=== PATIENT | female | born 1955 | race Caucasian/White ===

== ENCOUNTER 2020-04-17 13:57 | Emergency (ER) | payer OTHER ==
--- OUTSIDE RECORDS SUMMARY | 2020-04-17 13:59 | XMS REPORT | Clinical Summary ---
:1955 Author Organization [facility] Address [address] [place] [address] Care Team Providers Name Role Phone MD Ceferino Primary Care Provider Allergies No Known Allergies Medications Medication Sig Dispensed Refills Start Date End Date Status citalopram (CeleXA) Take 10 mg by 1 07/23/2018 Active 10 MG tablet mouth daily. PREMARIN 0.625 0 10/18/2018 Acti ve mg/gram vaginal cream omeprazole Take by mouth 1 10/11/2018 Acti ve (PriLOSEC) 40 MG daily. capsule raloxifene (EVISTA) Take 60 mg by 1 07/23/2018 Active 60 mg tablet mouth daily. predniSONE Take 15 mg by 1 10/18/2018 Acti ve (DELTASONE) 5 mg mouth daily. tablet nitrofurantoin, Take 100 mg 0 Ac tive macrocrystal-monohy by mouth 2 drate, (MACROBID) (two) times a 100 MG capsule day. famotidine (PEPCID) Take 40 mg by 0 Active 40 MG tablet mouth daily. ciprofloxacin Take 500 mg 0 Acti ve (CIPRO) 500 MG by mouth 2 tablet (two) times a day. vit B Take 1 tablet 0 Active complex-vitamin by mouth C-folic acid daily. (NEPHRO-JUDIT OTC) 0.8 mg tablet timoloL (BetimoL) 1-2 drops 2 0 Active 0.25 % ophthalmic (two) times a solution day. prednisoLONE 1 drop 4 0 Active acetate (PRED (four) times FORTE) 1 % a day. ophthalmic suspension mesalamine (APRISO) Take 1 60 capsule 2 04/02/2020 09/29/20 Active 0.375 gram 24 hr capsule 20 capsule (0.375 g total) by mouth daily for 180 days. dicyclomine TAKE 1 TABLET 120 tablet 0 04/06/2020 07/05/20 Ac tive (BENTYL) 20 mg BY MOUTH 4 20 tabletIndications: TIMES A DAY Lower abdominal NEEDED pain (ABDOMINAL PAIN) mesalamine (APRISO) Take 375 mg 0 01/27/20 Discontinued 0.375 gram 24 hr by mouth 20 (Re order) capsule daily. mesalamine (APRISO) Take 1 60 capsule 2 01/27/2020 02/24/20 Discontinued 0.375 gram 24 hr capsule 20 (Re order) capsule (0.375 g total) by mouth daily for 180 days. pneumococcal Inject 0.5 mL 0.5 mL 0 02/04/2020 02/04/20 Ex pired polysaccharide into the 20 23-valent shoulder, (PNEUMOVAX-23) 25 thigh, or mcg/0.5 mL buttocks once vaccineIndications: for 1 dose. Low serum IgG for age, Low serum IgA and IgM levels (HCC) mesalamine (APRISO) Take 1 60 capsule 2 02/24/2020 04/02/20 Discontinued 0.375 gram 24 hr capsule 20 (Re order) capsule (0.375 g total) by mouth daily for 180 days. dicyclomine Take 1 tablet 60 tablet 1 03/04/2020 03/30/20 Dis continued (BENTYL) 20 mg (20 mg total) 20 tabletIndications: by mouth 4 Lower abdominal (four) times pain a day as needed (abdominal pain) for up to 30 days. dicyclomine TAKE 1 TABLET 120 tablet 0 03/30/2020 04/06/20 Di scontinued (BENTYL) 20 mg BY MOUTH 4 20 (Reo rder) tabletIndications: TIMES A DAY Lower abdominal NEEDED pain (ABDOMINAL PAIN) FOR UP TO 30 DAYS. Active Problems Problem Noted Date Chest pain 10/30/2018 Encounters Date Type Specialty Care Team Description 04/06/2020 Orders Only Gastroenterology Alonso, Lower abdom inal pain ANNELIESE Lassiter 04/02/2020 Orders Only GastroenterMaikol Salazar MA 03/26/2020 Refill Gastroenterology Kwame, Lower abdom inal pain Veronica Vale MD 03/04/2020 Telemedicine Gastroenterology Kwame, Lower abdom inal pain Veronica Vale MD (Primary Dx) 03/02/2020 Travel 02/25/2020 Orders Only Allergy and Immunology Obrien, Carleen Recur rent infections (Primary Dx); MD [place] Low serum IgG f or age; Low serum IgA a nd IgM levels (HCC) 02/24/2020 Orders Only Gastroenterology Adelina Pichardo MA 02/04/2020 Telemedicine Allergy and Immunology Carleen Obrien s karyna IgG for age (Primary Dx); MD [place] Low serum IgA a nd IgM levels (HCC); Iritis; Inflammatory jhoan wel disease 02/04/2020 Orders Only Gastroenterology Kylee Crohn's dis ease of ANNELIESE Sahu colon with oth er complication (H CC) (Primary Dx) 02/03/2020 Telemedicine Gastroenterology Kwame Crohn's dis ease of Veronica Vale MD colon with o ther complication (H CC) (Primary Dx) 01/28/2020 Travel 01/27/2020 Orders Only Gastroenterology Adelina Pichardo MA 01/06/2020 Telemedicine Allergy and Immunology Carleen Obrien i mmunoglobulin level (Primary Dx); MD [place] Recurrent infec tions 12/17/2019 Orders Only Gastroenterology Veronica Puente MD 12/12/2019 Orders Only GastroenterVeronica Cash MD 12/10/2019 Office Visit Gastroenterology Kwame Inflammator y bowel Veronica Vale MD disease ([facility] ness Dx) after 04/17/2019 Family History Medical History Relation Name Comments CABG/Stent Brother Hypertension Father COPD Mother Hypertension Mother Stroke Mother Colon cancer Neg Hx Colon polyps Neg Hx Relation Name Status Comments Brother Alive Father Mother Alive Social History Tobacco Use Types Packs/Day Years Used Date Former Smoker Smokeless Tobacco: Never Used Comments: as teen Alcohol Use Drinks/Week oz/Week Comments No Alcohol Habits Answer Date Recorded How often do you have a drink containing alcohol? Never 10/30/2018 How many drinks containing alcohol do you have on a typical Not asked day when you are drinking? How often do you have six or more drinks on one occasion? No t asked Sex Assigned at Date Recorded Not on file Job Start Date Occupation Industry Not on file Not on file Not on file Travel History Travel Start Travel End No recent travel history available. Last Filed Vital Signs Vital Sign Reading Time Taken Comments Blood Pressure 122/82 12/10/2019 3:[address] [employer] Pulse 76 12/10/2019 3:[address] [employer] Temperature 36.7 C (98.1 F) 12/10/2019 3:[address] [employer] Respiratory Rate 12 12/10/2019 3:[address] [employer] Oxygen Saturation - - Inhaled Oxygen Concentration - - Weight 81.6 kg (180 lb) 03/04/2020 12:38 PM CDT Height 170.2 cm (5' 7") 03/04/2020 12:38 PM CDT Body Mass Index 28.19 03/04/2020 12:38 PM CDT Plan of Treatment Health Maintenance Due Date Last Done Comments CERVICAL CANCER SCREENING 1976 BREAST CANCER SCREENING 2005 COLONOSCOPY SCREENING 2005 SHINGLES VACCINES (#1) 2005 INFLUENZA VACCINE 05/16/2020 Procedures Procedure Name Priority Date/Time Associated Diagnosis Comme nts STREPTOCOCCUS Routine 03/02/2020 2:49 Recurrent infec tions Results for this PNEUMONIAE IGG ANTIBODY PM CDT Low seru m IgG for age procedure are in (23 SEROTYPES), MAID Low serum IgA and Ig M the results levels (HCC) section. SERUM ELECTROPHORESIS Routine 02/04/2020 4:15 Low serum IgG for age Results for this PM CDT Low serum IgA and IgM proced ure are in levels (HCC) the results Iritis section. Inflammatory bowel disease LEUKEMIA/LYMPHOMA Routine 02/04/2020 4:15 Low serum IgG for age Results for this EVALUATION PM CDT Low serum IgA and IgM proced ure are in levels (HCC) the results Iritis section. Inflammatory bowel disease HIV 1/2 Routine 02/04/2020 4:13 Low serum IgG f or age Results for this ANTIGEN/ANTIBODY, PM CDT Low serum IgA and IgM p rocedure are in FOURTH GENERATION W/RFL levels ( HCC) the results Iritis section. Inflammatory bowel disease HEPATITIS B CORE Routine 02/04/2020 4:09 Crohn's disease of R esults for this ANTIBODY TOTAL PM CDT colon with other procedure are in complication (HCC) the resul ts section. HEPATITIS B SURFACE Routine 02/04/2020 4:09 Crohn's disease o f Results for this ANTIGEN PM CDT colon with other procedure a re in complication (HCC) the resul ts section. COMPREHENSIVE METABOLIC Routine 02/04/2020 4:09 Crohn's disea se of Results for this PANEL PM CDT colon with other procedure a re in complication (HCC) the resul ts section. CBC HEMOGRAM Routine 02/04/2020 4:09 Crohn's disease of Resul ts for this PM CDT colon with other procedure a re in complication (HCC) the resul ts section. STREPTOCOCCUS Routine 01/07/2020 11:29 Low immunoglobulin Resu lts for this PNEUMONIAE IGG ANTIBODY AM CDT level procedure are in (23 SEROTYPES), MAID Recurrent infections the results section. DIPHTHERIA ANTITOXOID Routine 01/07/2020 11:29 Low immunoglobu mac Results for this AB AM CDT level procedure are in Recurrent infections the res ults section. TETANUS ANTITOXOID Routine 01/07/2020 11:29 Low immunoglobulin Results for this AM CDT level procedure are in Recurrent infections the res ults section. IMMUNOGLOBULIN A Routine 01/07/2020 11:29 Low immunoglobulin R esults for this AM CDT level procedure are in Recurrent infections the res ults section. LYMPHOCYTE SUBSET PANEL Routine 01/07/2020 11:29 Low immunoglo bulin Results for this 1 AM CDT level procedure are in Recurrent infections the res ults section. IMMUNOGLOBULIN M Routine 01/07/2020 11:29 Low immunoglobulin R esults for this AM CDT level procedure are in Recurrent infections the res ults section. IMMUNOGLOBULIN G Routine 01/07/2020 11:29 Low immunoglobulin R esults for this AM CDT level procedure are in Recurrent infections the res ults section. FECAL CALPROTECTIN Routine 12/17/2019 8:43 Resul ts for this AM STREET [employer] procedure are i n the results section. C-REACTIVE PROTEIN Routine 12/12/2019 11:57 Resul ts for this AM STREET [employer] procedure are i n the results section. SEDIMENTATION RATE Routine 12/12/2019 11:57 Resul ts for this AM STREET [employer] procedure are i n the results section. QUANTIFERON-TB GOLD Routine 12/12/2019 11:45 Re sults for this PLUS, [address] [employer] procedure are i n the results section. after 04/17/2019 Results Streptococcus pneumoniae IgG AB (23 Serotypes), MAID (03/02/2020 2:49 PM CDT) Only the most recent of2 resultswithin the time period is included. Pneumococcal 46.9 [facility] serotype 1, IgG Pneumococcal 6.5 [facility] serotype 2, IgG Pneumococcal 2.0 [facility] serotype 3, IgG Pneumococcal >28.0 [facility] serotype 4, IgG Pneumococcal 2.7 [facility] serotype 5, IgG Pneumococcal >86.0 [facility] serotype 8, IgG Pneumococcal 1.1 [facility] serotype 9N, IgG Pneumococcal 0.4 [facility] serotype 12F, IgG Pneumococcal 0.4 [facility] serotype 14, IgG Pneumococcal 18.1 [facility] serotype 17F, IgG Pneumococcal 1.1 [facility] serotype 19F, IgG Pneumococcal 19.3 [facility] serotype 20, IgG Pneumococcal 2.6 [facility] serotype 22F, IgG Pneumococcal 0.9 [facility] serotype 23F, IgG Pneumococcal 0.8 [facility] serotype 6B, IgG PNEUMOCOCCAL 1.9 [facility] SEROTYPE 34 (10A) PNEUMOCOCCAL 7.3 [facility] SEROTYPE 43 (11A) Pneumococcal 6.9 [facility] serotype 7F, IgG PNEUMOCOCCAL 0.8 [facility] SEROTYPE 54 (15B) Serotype 56 37.2 [facility] PNEUMOCOCCAL 16.6 [facility] SEROTYPE 57 (19A) PNEUMOCOCCAL 9.6 [facility] SEROTYPE 68 (9V) PNEUMOCOCCAL 3.7 [facility] SEROTYPE 70 (33F) Comment: Serologic correlates of protection against pneumococca l disease have not been rigorously established for all patient populations. Published data and expert consens us (including WHO) suggest protection from invasive disea se usually occurs at levels >or =0.3-0.50 mcg/mL for heal thy children receiving pneumococcal conjugate vaccines. Higher titers may be necessary to protect from non-invasive infection (e.g., pneumonia, otitis, sinusitis). Expert opinion suggests that a cut-off of >= 1.3 mcg/mL may be a more relevant value to asses s antibody responses after pneumococcal polysaccharide vaccines or for immunocompromised patients. In additio n to antibody quantity, protection also depends on antibody avidity and opsonophagocytic activity. Some experts consider that post-vaccination (4-6 weeks) IgG seroconversion and/or 2- to 4-fold rise in IgG titers for >50% to 70% of vaccine serotypes demonstrates a normal post-vaccine serologic response. Persons with high initial serotype-specific titers may have less robust responses. [facility] uses a multi-analyte immunodetection (MAID) method. The method employs the [employer] Radioex flow cytometric system which measures multiple analytes simultaneously. The FDA standard reference serum 89-S is used as the calibration standard. Results are reported in mcg/mL. This assay detects all of the 23 of the serotypes in the 23-valent polysaccharide vaccine and 12 of the 13 serotypes in the 13-valent conjugate vaccine. This test was developed and its analytical performance characteristics have been determined by [facility]. It has not been cleared or approved by FDA. This assay has been validated pursuant to the CLIA regulations and is used for clinical purposes. For additional information, please refer to http://education.Cybits.Jumpzter/faq/HCZ432 (This link is being provided for informational/ educational purposes only.) Specimen Narrative Performed At FASTING:NO [facility] FASTING: NO Resulting Agency Comment Performing Organization Information: Site ID: [id number] Name: [facility] Address: [address] [place] [phone] Director: Jonh Mejia MD Performing Organization Address City/State/Zipcode Phone Number [facility] [address] [place] [phone] [facility] Leukemia/Lymphoma Evaluation (02/04/2020 4:15 PM CDT) Clinical information NOT GIVEN [facility] Specimen type BLOOD [facility] Viability 71 % [facility] Interpretation SEE NOTE [facility] Comment: [facility] NO IMMUNOPHENOTYPICALLY ABNORMAL CELL POPULATIONS DETE CTED (SEE COMMENT) Comment: The specimen consists primarily of granulocyt es and lymphocytes (T-cells and polyclonal B-cells). No immunophenotypically abnormal cell population was iden tified by gating analysis using the listed markers. Correlation with clinical history, morphology and othe r diagnostic information is necessary for diagnosis. This specimen exhibits less than optimal viability and we c annot rule out the possibility of differential effects on va rious subpopulations of cells. Results reviewed and interpre caitlin by Lj Rios M.D. Sample description: SEE NOTE [facility] Comment: [facility] The sample consists of 56% granulocytic cells, 38% lymphocytoid cells, and 5% monocytoid cells. Gating Strategy SEE NOTE [facility] Comment: [facility] Gating in the specimen was performed on the cell popul ation that resembles lymphocytes and was based on CD45 (elliott leukocyte fluorescent intensity) vs. side scatter (int ernal complexity). Markers: SEE NOTE [facility] Comment: [facility] Region B CD Marker %Positive --------- CD2 83 CD3 77 CD4 62 CD5 79 CD7 78 CD8 14 CD10 1 CD11c 6 CD13 1 CD19 14 CD19+CD5+ 0 CD20 14 CD23 8 CD33 0 CD34 0 CD38 10 CD45 100 CD56+CD3- 7 CD64 0 CD117 0 HLA_DR 14 Trevose CD19+ 65 Lambda CD19+ 35 K/L Ratio 1.9 This test was developed and its analytical performance characteristics have been determined by [facility]. It has not been cleared or approved by FDA. This assay has been valida caitlin pursuant to the CLIA regulations and is used for clini jamir purposes. Number of markers: [address] [employer] Specimen Blood Resulting Agency Comment Performing Organization Information: Site ID: [id number] Name: [facility], Address: [address] [place] [phone] Director: Nalini Gee MD,PhD,MB A Performing Organization Address City/State/Zipcode Phone Number [facility] [address] [place] [address] [facility] Serum electrophoresis (02/04/2020 4:15 PM CDT) Protein 6.6 6.1 - 8.1 [facility] g/dL [facility]-IRVI NG II Albumin, S 4.5 3.8 - 4.8 [facility] g/dL [facility] II Xlgwz-7-tuyqxwum 0.2 0.2 - 0.3 [facility] g/dL [facility] NG II Htlis-4-yojpgywg 0.7 0.5 - 0.9 [facility] g/dL [facility] II Beta-1 globulin 0.4 0.4 - 0.6 [facility] g/dL [facility] Beta-2 globulin 0.3 0.2 - 0.5 [facility] g/dL [facility] Gamma, CSF 0.5 (L) 0.8 - 1.7 [facility] g/dL [facility] NG II Interpretation [facility] Comment: [facility] NG II Consistent with hypogammaglobulinemia. Serum free ligh t chains or urine immunofixation should be considered if plasma cell dyscrasias are a possible clinical diagnosis. Specimen Blood Resulting Agency Comment Performing Organization Information: Site ID: [id number] Name: [facility] Address: [address] [place] [address] Director: Dr. Carson paul Performing Organization Address City/State/Zipcode Phone Number MIRIAM [employer] [address] [place] [address] HIV 1/2 ANTIGEN/ANTIBODY, FOURTH GENERATION W/RFL (02/04/2020 4:13 PM CDT) HIV AG/AB 4th NON-REACTIVE NON-REACTIVE [facility] gen Comment: [place] HIV-1 antigen and HIV-1/HIV-2 antibodies were not detected. There is no laboratory evidence of HIV infection. PLEASE NOTE: This information has been disclosed to you from records whose confidentiality may be protected by state law. If your state requires such protection, then the state law prohibits you from making any further disclosure of the information without the specific written consent of the person to whom it pertains, or as otherwise permitted by law. A general authorization for the release of medical or other information is NOT sufficient for this purpose. For additional information please refer to http://education.View Inc./faq/NHQ730 (This link is being provided for informational/ educational purposes only.) The performance of this assay has not been clinically validated in patients less than 2 years old. Specimen Resulting Agency Comment Performing Organization Information: Site ID: [id number] Name: [facility] Address: [address] [place] [phone] Director: Carson Ward Performing Organization Address City/State/Zipcode Phone Number [facility] [address] [address] Hepatitis B core antibody total (02/04/2020 4:09 PM CDT) Hepatitis B core NON-REACTIVE NON-REACTIVE [facility] total Ab [place] Specimen Blood Resulting Agency Comment Performing Organization Information: Site ID: [id number] Name: [facility] Address: [address] [place] [phone] Director: Carson Ward Performing Organization Address City/State/Zipcode Phone Number [facility] [place] [address] [place] [phone] Hepatitis B surface antigen (02/04/2020 4:09 PM CDT) Pathologist [facility] Hepatitis B surface NON-REACTIVE NON-REACTIVE [facility] Specimen Blood Resulting Agency Comment Performing Organization Information: Site ID: [id number] Name: [facility] Address: [address] [place] [phone] Director: Carson Ward Performing Organization Address City/State/Zipcode Phone Number [facility] [address] [address] CBC hemogram (02/04/2020 4:09 PM CDT) [facility] WBC 9.5 3.8 - 10.8 [facility] Thousand/uL [place] RBC 4.70 3.80 - 5.10 [facility] Million/uL [place] HGB 14.3 11.7 - 15.5 g/dL [facility] [place] HCT 42.0 35.0 - 45.0 % [facility] [place] MCV 89.4 80.0 - 100.0 fL [facility] [place] MCH 30.4 27.0 - 33.0 pg [facility] [place] MCHC 34.0 32.0 - 36.0 g/dL [facility] [place] RDW 12.3 11.0 - 15.0 % [facility] [place] Platelet count 230 140 - 400 [facility] Thousand/uL [place] MPV 12.1 7.5 - 12.5 fL [facility] [place] Specimen Blood Resulting Agency Comment Performing Organization Information: Site ID: [id number] Name: [facility] Address: [address] [place] [phone] Director: Carson Ward Performing Organization Address City/State/Zipcode Phone Number [facility] [address] [address] Comprehensive metabolic panel (02/04/2020 4:09 PM CDT) [facility] Glucose 87 65 - 99 [facility] Comment: mg/dL [place] Fasting reference interval BUN 20 7 - 25 mg/dL [facility] [place] Creatinine 0.79 0.50 - 0.99 [facility] Comment: mg/dL [place] For patients >49 years of age, the reference limit for Creatinine is approximately 13% higher for people identified as -Citizen Of [place]. EGFR Non-Afr. 79 > OR = 60 [facility] Citizen [place] mL/min/1.73m [place] 2 EGFR 92 > OR = 60 [facility] Citizen [place] mL/min/1.73m [place] 2 BUN/creatinine NOT APPLICABLE 6 - 22 [facility] ratio (calc) [place] Sodium 140 135 - 146 [facility] mmol/L [place] Potassium 3.8 3.5 - 5.3 [facility] mmol/L [place] Chloride 106 98 - 110 [facility] mmol/L [place] CO2 25 20 - 32 [facility] mmol/L [place] Calcium 9.9 8.6 - 10.4 [facility] mg/dL [place] Protein 6.3 6.1 - 8.1 [facility] g/dL [place] Albumin, S 4.3 3.6 - 5.1 [facility] g/dL [place] Globulin, total 2.0 1.9 - 3.7 [facility] g/dL (calc) [place] Albumin/globulin 2.2 1.0 - 2.5 [facility] ratio (calc) [place] Total bilirubin 0.5 0.2 - 1.2 [facility] mg/dL [place] Alkaline 70 37 - 153 U/L [facility] phosphatase [place] AST 16 10 - 35 U/L [facility] [place] ALT 13 6 - 29 U/L [facility] [place] Specimen Blood Resulting Agency Comment Performing Organization Information: Site ID: [id number] Name: [facility] doll Address: [address] [place] [phone] Director: Carson Ward Performing Organization Address City/State/Zipcode Phone Number [facility] [address] [address] Lymphocyte subset panel 1 (01/07/2020 11:29 AM CDT) Pathologist Sig nature CD3% 71 57 - 85 % [facility] CD3 absolute count 1,572 840 - 3,060 [facility] cells/uL [facility]ICS-[facility] CD4% 54 30 - 61 % [facility] CD4 absolute count 1,228 490 - 1,740 [facility] cells/uL [facility] CD8% 16 12 - 42 % [facility] CD8 absolute count 368 180 - 1,170 [facility] cells/uL [facility] CD4/CD8 ratio 3.33 0.86 - 5.00 [facility] % NK (CD56/16) 15 4 - 25 % [facility] AB NK (CD56/16) 331 70 - 760 [facility] cells/uL [facility] CD19% 12 6 - 29 % [facility] Abs. CD19+ lymphs 259 110 - 660 [facility] cells/uL [facility] Lymphocytes, absolute 2,206 850 - 3,900 [facility] cells/uL [facility] Specimen Narrative Performed At FASTING:NO [facility] FASTING: NO Resulting Agency Comment Performing Organization Information: Site ID: [id number] Name: [facility] Address: [address] [place] [phone] Director: Dr. Carson paul Performing Organization Address City/State/Zipcode Phone Number [facility] [address] [place] [phone] Tetanus antitoxoid (01/07/2020 11:29 AM CDT) Tetanus 1.20 IU/mL [email or web address] antitoxoid Comment: REFERENCE RANGE: 0.10 IU/mL or greater Antibody levels > or = 0.10 IU/mL are considered protective. However, tetanus can still occur in some individuals with such antibody levels. These results should not be used to determine the necessity to administer antitoxin when clinically indicated. This test was developed and its analytical performance characteristics have been determined by [facility]. It has not been cleared or approved by FDA. This assay has been validated pursuant to the CLIA regulations and is used for clinical purposes. Specimen Narrative Performed At FASTING:NO [facility] FASTING: NO Resulting Agency Comment Performing Organization Information: Site ID: [id number] Name: [facility] Address: [address] [place] [phone] Director: Jonh Mejia MD Performing Organization Address City/State/Zipcode Phone Number [facility] [address] [place] [address] [facility] Diphtheria Antitoxoid Ab (01/07/2020 11:29 AM CDT) Diphtheria 0.25 IU/mL [email or web address] antitoxoid Ab Comment: REFERENCE RANGE: 0.10 IU/mL or greater Interpretive Criteria <0.10 IU/mL Nonprotective Antibody L evel > Or = 0.10 IU/mL Protective Antibody Level Antibody levels > or = 0.10 IU/mL are considered protective. After a primary series of three properly spaced diphtheria toxoid doses in adults or four doses in infants, a protective level of antitoxin (defined as greater than 0.10 IU of antitoxin/mL) is reached in more than 95%. This test was developed and its analytical performance characteristics have been determined by [facility]. It has not been cleared or approved by FDA. This assay has been validated pursuant to the CLIA regulations and is used for clinical purposes. Specimen Blood Narrative Performed At FASTING:NO [facility] FASTING: NO Resulting Agency Comment Performing Organization Information: Site ID: [id number] Name: [facility] Address: [address] [place] [phone] Director: Jonh Mejia MD Performing Organization Address [facility] Phone Number [facility] [address] [facility] Immunoglobulin A (01/07/2020 11:29 AM CDT) Pathologist Sig nature IgA 58 (L) 70 - 320 mg/dL [employer] [place] Specimen Blood Narrative Performed At FASTING:NO [facility] FASTING: NO Resulting Agency Comment Performing Organization Information: Site ID: [id number] Name: [facility] Address: [address] [place] [phone] Director: Carson Ward Performing Organization Address [facility] Phone Number [employer] [address] [address] Immunoglobulin M (01/07/2020 11:29 AM CDT) Pathologist Sig nature IgM 25 (L) 50 - 300 mg/dL [employer] [place] Specimen Blood Narrative Performed At FASTING:NO [facility] FASTING: NO Resulting Agency Comment Performing Organization Information: Site ID: [id number] Name: [facility] Address: [address] [place] [phone] Director: Carson Ward Performing Organization Address City/[facility]/Zipcode Phone Number [employer] [place] [address] [place] [phone] Immunoglobulin G (01/07/2020 11:29 AM CDT) Pathologist Sig nature IgG 468 (L) 600 - 1,540 mg/dL [employer] [email or web address]] ON Specimen Blood Narrative Performed At FASTING:NO [facility] FASTING: NO Resulting Agency Comment Performing Organization Information: Site ID: [id number] Name: [facility] Address: [address] [place] [phone] Director: Carson Ward Performing Organization Address [facility] Phone Number [employer] [place] [address] [place] [address] Fecal calprotectin (12/17/2019 8:[address] SUPERINTENDENT) Fecal calprotectin 28.4 mcg/g [facility] Comment: DIAGNOSTICS/CINDY [facility] <15.625 - 50 mcg/g Normal >50 - 120 mcg/g Borderline >120 mcg/g Abnormal Calprotectin in Crohn's disease and ulcerative colitis can be five to several thousand times above the reference population (50 mcg/g or less). Levels are usually 50 m cg/g or less in healthy patients and with irritable bowel syndrome. Repeat testing in 4-6 weeks is suggested for borderline values. Specimen Narrative Performed At [facility] 12/12/2019 FROM [id number] [employer] FASTING:NO FASTING: NO Resulting Agency Comment Performing Organization Information: Site ID: [id number] Name: [facility], Address: [id number] [place] [phone] Director: Nalini Gee MD,PhD,MB A Performing Organization Address [facility] Centercode Phone Number [employer] [address] [place] [address] [facility] Sedimentation rate (12/12/2019 11:[address] SUPERINTENDENT) Pathologist Sig nature Sedimentation rate 2 < OR = 30 mm/h [employer] [place] Specimen Narrative Performed At COLLECTION KIT GIVEN TO PATIENT. PATIENT ADVISED TO RE TURN. [facility] Resulting Agency Comment Performing Organization Information: Site ID: [id number] Name: [facility] Address: [address] [place] [phone] Director: Carson Ward Performing Organization Address City/[facility] Centercode Phone Number [facility] [employer] [place] [address] [place] [address] [phone] C-reactive protein (12/12/2019 11:[address] SUPERINTENDENT) Pathologist Sig nature CRP 9.2 (H) <8.0 mg/L [employer] [place] Specimen Narrative Performed At COLLECTION KIT GIVEN TO PATIENT. PATIENT ADVISED TO RE TURN. [facility] Resulting Agency Comment Performing Organization Information: Site ID: [facility] Name: [facility] Address: [address] [place] [phone] Director: Casron Ward Performing Organization Address [facility] Centercode Phone Number [employer] [place] [address] [place] [phone] QuantiFERON-TB Gold Plus, 1 Tube (12/12/2019 11:[address] SUPERINTENDENT) Quantiferon TB gold NEGATIVE NEGATIVE [facility] plus Comment: [place] Negative test result. M. tuberculosis complex infection unlikely. Quantiferon NIL 0.03 IU/mL [facility] [place] Quantiferon mitogen >10.00 IU/mL [facility] minus NIL [place] Quantiferon plus <0.00 IU/mL [facility] TB1 minus NIL [place] Quantiferon plus 0.00 IU/mL [facility] TB2 minus NIL Comment: [place] The Nil tube value reflects the background interferon gamma immune response of the patient's blood sample. This value has been subtracted from the patient's displayed TB and Mitogen results. Lower than expected results with the Mitogen tube prevent false-negative Quantiferon readings by detecting a patient with a potential immune suppressive condition and/or suboptimal pre-analytical specimen handling. The TB1 Antigen tube is coated with the M. tuberculosis-specific antigens designed to elicit responses from TB antigen primed CD4+ helper T-lymphocytes. The TB2 Antigen tube is coated with the M. tuberculosis-specific antigens designed to elicit responses from TB antigen primed CD4+ helper and CD8+ cytotoxic T-lymphocytes. For additional information, please refer to https://education.Cybits.Jumpzter/faq/ZJR400 (This link is being provided for informational/ educational purposes only.) Specimen Narrative Performed At FASTING:NO [facility] FASTING: NO Resulting Agency Comment Performing Organization Information: Site ID: [id number] Name: [facility] Address: [address] [place] [address] Director: Carson Ward Performing Organization Address City/State/Zipcode Phone Number MIRIAM [employer] [place] [address] [place] [address] after 04/17/2019 Advance Directives For more information, please contact: [phone] Type Date Recorded 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
--- OUTSIDE RECORDS SUMMARY | 2020-04-17 14:01 | XMS REPORT | Continuity of Care Document ---
:1955 Author Organization [facility] Address [address] [place] [address] Care Team Providers Name Role Phone Ceferino LUCAS Primary Care Physician Alonso COY Attending Clinician Unavailable Kwame LUCAS, Akanksha Attending Clinician [place] Obrien MD Attending Clinician Kylee COY Attending Clinician Unavailable Payers Payer Name Policy Type Policy Number Effective Date Expiration Date S ronaldo AETNAAETNA PPO xxxxxxxxx 2018 [place] OPEN 00:00:00 [facility] CHOICExxxxxxxxx1 -Present PPO Problems Condition Condition Condition Status Onset Resolution Last Treating Co mments Source Name Details Category Date Date Treatment Clinician Date Chest pain Chest pain Disease [facility] Method[facility] 00:00: st 00 Allergies, Adverse Reactions, Alerts This patient has no known allergies or adverse reactions. Family History Family Member Diagnosis Comments Start Date Stop Date Source Natural brother CABG/Stent [facility] ethodist Natural [facility] Natural mother COPD [facility] thodist Natural mother Hypertension [facility] Family member Colon cancer [facility] ethodi Family member Colon polyps [facility] Social History Social Habit Start Date Stop Date Quantity Comments Source History [facility] Meth odist Alcohol Std Drinks History [facility] Alcohol Binge Sex Assigned At [facility] ethodist Alcohol intake 2020-03-11 2020-03-[address] [facility] thodist 00:00:00 00:00:00 non-drinker of alcohol (finding) History SDOH 2018-10-30 2018-10-30 1 [place] [facility] Alcohol Frequency 00:00:00 00:00:00 Tobacco Comment 2018-10-30 2018-10-30 as teen Donald Santana ethodist 00:00:00 00:00:00 Smoking Status Start Date Stop Date Source Former smoker 2020-03-11 00:00:00 2020-03-11 00:00:00 [facility] Medications Ordered Filled Start Stop Current Ordering Indication Dosage Frequency Signature Comments Components Source Medication Medication Date Date Medication? Clinician (SIG) Name Name dicyclomine 2019-0 2020- Yes Lower TAKE 1 Jose dang (BENTYL) 20 6-22 09-20 abdominal TABLET BY Methodi mg tablet 00:00: 23:[address] 00 :00 TIMES A DAY NEEDED (ABDOMINAL PAIN) mesalamine 2019-0 2020- Yes .375g QD Take 1 Claudia ston (APRISO) 6-18 12-15 capsule Methodi 0.375 gram 00:00: 23:59 (0.[address] 24 hr 00 :00 total) by capsule mouth daily for 180 days. dicyclomine 2019-0 2020- No Lower TAKE 1 Jose dang (BENTYL) 20 6-15 06-22 abdominal TABLET BY Methodi mg tablet 00:00: 00:[address] 00 :00 TIMES A DAY NEEDED (ABDOMINAL PAIN) FOR UP TO 30 DAYS. famotidine 2020-0 Yes 40mg QD Take 40 mg [place] (PEPCID) 40 5-20 by mouth Meth silvina MG tablet 12:39: daily. st 35 ciprofloxac 2020-0 Yes 500mg Q.5D Take 500 [place] in (CIPRO) 5-20 mg by Methodi 500 MG 12:39: mouth 2 st tablet 35 (two) times a day. vit B 2020-0 Yes 1{tbl} QD Take 1 Bennett complex-vit 5-20 tablet by Met hodi jeffrey 12:39: mouth st C-folic 35 daily. acid (NEPHRO-VIT E OTC) 0.8 mg tablet timoloL 2020-0 Yes 1[drp] Q.5D 1-2 drops Claudia ston (BetimoL) 5-20 2 (two) Methodi 0.25 % 12:39: times a st ophthalmic 35 day. solution prednisoLON 2020-0 Yes 1[drp] Q.25D 1 drop 4 Bennett E acetate 5-20 (four) Methodi (PRED 12:39: times a st FORTE) 1 % 35 day. ophthalmic suspension dicyclomine 2019-2019- No Lower 20mg Q.25D Take 1 [place] (BENTYL) 20 5-20 06-15 abdominal tablet (20 Methodi mg tablet 00:00: 00:00 pain mg total) st 00 :00 by mouth 4 (four) times a day as needed (abdominal pain) for up to 30 days. mesalamine 2020-0 2020- No .375g QD Take 1 Claudia ston (APRISO) 5-11 06-18 capsule Methodi 0.375 gram 00:00: 00:00 (0.[address] 24 hr 00 :00 total) by capsule mouth daily for 180 days. pneumococca 2019- 2020- No Low serum .5mL Inject 0.5 Bennett l - 04-21 IgA and IgM mL into Meth [place]ina polysacchar 00:00: 23:[address] kuldeep 00 :00 (HCC) shoulder, 23-valent thigh, or (PNEUMOVAX- buttocks 23) 25 once for 1 mcg/0.5 mL dose. vaccine mesalamine 2019-0 2020- No 375mg QD Take 375 [place] (APRISO) 4-13 04-13 mg by Methodi 0.375 gram 11:58: 00:[address] 24 hr 39 :00 daily. capsule mesalamine 2020-0 2020- No .375g QD Take 1 Claudia ston (APRISO) 4-13 05-11 capsule Methodi 0.375 gram 00:00: 00:00 (0.[address] 24 hr 00 :00 total) by capsule mouth daily for 180 days. nitrofurant 2018-0 Yes 100mg Q.5D Take 100 [place] oin, 1-15 mg by Methodi macrocrysta 14:55: mouth 2 st l-monohydra 53 (two) te, times a (MACROBID) day. 100 MG capsule PREMARIN 2018- Yes Bennett 0.625 1-03 Methodi mg/gram 00:00: st vaginal 00 cream predniSONE 2018- Yes 15mg QD Take 15 mg [place] (DELTASONE) 1-03 by mouth Meth sil[facility] 5 mg tablet 00:00: daily. st 00 omeprazole 2017-10 Yes QD Take by [place] (PriLOSEC) 2-27 mouth Methodi 40 MG 00:00: daily. st citalopram 2017-10 Yes 10mg QD Take 10 mg [place] (CeleXA) 10 0-08 by mouth Meth sil[place] MG tablet 00:00: daily. st raloxifene 2017-10 Yes 60mg QD Take 60 mg [place] (EVISTA) 60 0-08 by mouth Meth [place] mg tablet 00:00: daily. Vital Signs Vital Name Observation Time Observation Value Comments Source Body height 2020-03-04 12:38:00 170.2 cm [facility] Body weight 2020-03-04 12:38:00 81.647 kg Donald Kat BMI 2020-03-04 12:38:00 28.19 kg/m2 Donald Kat Systolic blood 2019-12-10 15:53:00 122 mm[Hg] Christina Kat pressure Diastolic blood 2019-12-10 15:53:00 82 mm[Hg] [place] [facility] pressure Heart rate 2019-12-10 15:53:00 76 /min Donald Kat Body temperature 2019-12-10 15:53:00 36.72 [place]irsty [place] [facility] Respiratory rate 2019-12-10 15:53:00 12 /min [place] [facility] Procedures Procedure Date / Time Performing Clinician Source Performed STREPTOCOCCUS PNEUMONIAE 2020-03-02 14:49:00 Carleen Obrien IGG ANTIBODY (23 SEROTYPES), MAID LEUKEMIA/LYMPHOMA 2020-02-04 16:15:00 Carleen Obrien ethodist EVALUATION SERUM ELECTROPHORESIS 2020-02-04 16:15:00 Carleen Obrien HIV 1/2 ANTIGEN/ANTIBODY, 2020-02-04 16:13:00 Carleen Obrien FOURTH GENERATION W/RFL CBC HEMOGRAM 2020-02-04 16:09:00 Shanice Puente Me thodist Akanksha COMPREHENSIVE METABOLIC 2020-02-04 16:09:00 Shanice Puente PANEL Akanksha HEPATITIS B SURFACE 2020-02-04 16:09:00 Shanice Puente ANTIGEN Akanksha HEPATITIS B CORE ANTIBODY 2020-02-04 16:09:00 Shanice Puente TOTAL Akanksha LYMPHOCYTE SUBSET PANEL 1 2020-01-07 11:29:00 ObrienCarleen [place] H ouro[place]ita Kat IMMUNOGLOBULIN A 2020-01-07 11:29:00 ObrienCarleen Or thodist TETANUS ANTITOXOID 2020-01-07 11:29:00 MicahCarleen Spiritism STREPTOCOCCUS PNEUMONIAE 2020-01-07 11:29:00 MicahCarleen [facility] IGG ANTIBODY (23 SEROTYPES), MAID FECAL CALPROTECTIN 2019-12-17 08:43:00 Shanice Puente Akanksha SEDIMENTATION RATE 2019-12-12 11:57:00 Shanice Puente C-REACTIVE PROTEIN 2019-12-12 11:57:00 Shanice Puente QUANTIFERON-TB GOLD 2019-12-12 11:45:00 Shanice Puente PLUS, 1 TUBE Akanksha Plan of Care Planned Activity Planned Date Details Comments Source Future Scheduled 2020-05-16 INFLUENZA VACCINE [place] [facility] 00:00:00 [code = INFLUENZA VACCINE] Future Scheduled [address] [facility] thodist Test 00:00:00 SCREENING [code = BREAST CANCER SCREENING] Future Scheduled 2005 COLONOSCOPY SCREENING [place] [facility] Test 00:00:00 [code = COLONOSCOPY SCREENING] Future Scheduled 2005 SHINGLES VACCINES [place] [facility] 00:00:00 (#1) [code = SHINGLES VACCINES (#1)] Future Scheduled [address] [facility] thodist Test 00:00:00 malignant neoplasm of cervix (procedure) [code = 910637047] Encounters Start End Encounter Admission Attending Care Care Encounter Source Date/Time Date/Time Type Type Clinicians Facility Department ID 2020-03-04 2020-03-04 [facility] [id number] [place] 00:00:00 00:00:00 SHANICE [address] 2020-02-04 2020-02-04 Outpatient MICAHCARLEEN [facility] [id number] [place] 00:00:00 00:00:[address] 2020-02-03 2020-02-03 Outpatient KWAME [facility] [id number] [place] 00:00:00 00:00:00 SHANICE [address] 2020-01-06 2020-01-06 Outpatient CARLEEN OBRIEN [facility] [id number] [place] 00:00:00 00:00:[address] 2019-12-10 2019-12-10 Outpatient KWAME, [facility] [id number] [place] 00:00:00 00:00:00 SHANICE [address] Results Test Description Test Time Test Comments Results Result Comments Source Streptococcus pneumoniae IgG AB (23 Serotypes), MAID 2020-02 01:39:00 Test Item Value Reference Range Interpretation Comme nts Pneumococcal serotype 1, 46.9 IgG (test code = 6139221) Pneumococcal serotype 2, 6.5 IgG (test code = 4321) Pneumococcal serotype 3, 2.0 IgG (test code = 6135062) Pneumococcal serotype 4, >28.0 IgG (test code = 1978) Pneumococcal serotype 5, 2.7 IgG (test code = 4688239) Pneumococcal serotype 8, >86.0 IgG (test code = 2577994) Pneumococcal serotype 1.1 9N, IgG (test code = 1631173) Pneumococcal serotype 0.4 12F, IgG (test code = 1974) Pneumococcal serotype 0.4 14, IgG (test code = 6691508) Pneumococcal serotype 18.1 17F, IgG (test code = 4329) Pneumococcal serotype 1.1 19F, IgG (test code = 1976) Pneumococcal serotype 19.3 20, IgG (test code = 4322) Pneumococcal serotype 2.6 22F, IgG (test code = 4320) Pneumococcal serotype 0.9 23F, IgG (test code = 1977) Pneumococcal serotype 0.8 6B, IgG (test code = 69479-0) PNEUMOCOCCAL SEROTYPE 34 1.9 (10A) (test code = 5074) PNEUMOCOCCAL SEROTYPE 43 7.3 (11A) (test code = 5075) Pneumococcal serotype 6.9 7F, IgG (test code = 00431-3) PNEUMOCOCCAL SEROTYPE 54 0.8 (15B) (test code = 44368-8) Serotype 56 (test code = 37.2 11751-7) PNEUMOCOCCAL SEROTYPE 57 16.6 (19A) (test code = 71673-9) PNEUMOCOCCAL SEROTYPE 68 9.6 (9V) (test code = 62770-3) PNEUMOCOCCAL SEROTYPE 70 3.7 Ser ologic correlates of (33F) (test code = [place] [address]-4) pneumococcaldis ease have not been rigorously esta blished for allpatient popu lations. Published data and expert consensus(inclu parag WHO) suggest protection from invasive diseaseusually occurs at levels >or =0.3-0.50 m cg/mL for healthychildren receiving pneumococcal co njugate vaccines.Higher titers may be necessary to pr otect fromnon-invasiv e infection (e.g., pneumonia, otit is,sinusitis). Expert opinion suggests that a cut-offof >= 1. 3 mcg/mL may be a more relevant v alue to assessantibody responses after pneumococcal polysaccharidev accines or for immunocompromis ed patients. In additionto anti body quantity, protection also depends onantibody avid ity and opsonophagocyti c activity. Someexperts con night custodian that post-vaccinatio n (4-6 weeks) IgGseroconversi on and/or 2- to 4-fold rise in IgG titersfor >50% to 70% of vacci ne serotypes demonstrates an ormal post-vaccine serologic respo nse. Persons withhigh initia l serotype-specif ic titers may have lessrobust resp onses. [facility] uses amulti-tashia lyte immunodetection (MAID) method. Themethod emplo ys the [employer] flow cytometric systemwhich measures multip le analytes simultaneously. TheFDA standard reference serum 89-S is used as thecalibration standard. Results are reported in mcg/mL. This assay detects a ll of the 23 of the serotypes i nthe 23-valent polysaccharide vaccine and 12 of the13 serotypes in the 13-valent conjugate vacci ne. This test was developed and i ts analyticalperfo rmance characteristics have been determinedby [facility]. It has notbeen cleared or approved by FDA. This assay has beenvalidated pursuant to the CLIA regulations and is usedfor clinical purposes. For additional information, please refer tohttp://educat ion.iPinYou.com/faq/FAQ1 81(This link is being provided for informational/e ducational purposes only.) SANTANA (test code = SANTANA) FASTING:NOFASTING: NO RAC (test code = RAC) Performing Organization Information: Site ID: TXC Name: [facility] Address: [address] [place] [phone] Director: Jonh Mejia MD [place] [facility] [id number] 19:19:00 Test Item Value Reference Interpretation Comments Range Protein (test code = 6.6 g/dL 6.1-8.1 2885-2) Albumin, S (test 4.5 g/dL 3.8-4.8 code = 2862-1) Ebhob-6-rvbxehac 0.2 g/dL 0.2-0.3 (test code = 2865-4) Emzny-5-yabszlmv 0.7 g/dL 0.5-0.9 (test code = 2868-8) Beta-1 globulin 0.4 g/dL 0.4-0.6 (test code = 72632-4) Beta-2 globulin 0.3 g/dL 0.2-0.5 (test code = 08451-0) Gamma, CSF (test 0.5 g/dL 0.8-1.7 L code = 2874-6) Interpretation (test Consis tent with code = 04352-9) hypogammaglo bulinem ia. Serum free light chains or urine immunofixation should be considered if plasma cell dyscrasias are a possible clinic al diagnosis. RAC (test code = Performing RAC) Organization Information: Site ID: IG Name: [facility] Address: [address] [place] [phone] Director: Dr. Carson Ward Lab Interpretation Abnormal (test code = 29097-5) [place] [facility]uk[facility]ymphoma [id number] 19:19:00 Test Item Value Reference Interpretation Comments Range Clinical NOT GIVEN information (test code = 59359-0) Specimen type BLOOD (test code = 88802-7) Viability (test 71 % code = 31594-2) Interpretation SEE NOTE NO IMMUNOPH ENOTYPICALLY (test code = ABNORMAL CELL P OPULATIONS 48099-7) DETECTED(SEE CO MMENT) Comment: The sp ecimen consists primar leonard of granulocytes an dlymphocytes (T-cells and po lyclonal B-cells). Noimmunophenoty pically abnormal cell p opulation was identifiedby ga ting analysis using the liste d markers. Correlation wit h clinical history, morpho logy and otherdiagnostic information is necessary fo r diagnosis. Thisspecimen exhibits less than optimal vi ability and we cannotrule o ut the possibility of differential effects on varioussubpopul ations of cells. Results reviewed and interpreted byVadim garland M.D. Sample SEE NOTE The sample co nsists of 56% description: granulocytic ce lls, (test code = 38%lymphocytoid cells, and 62038-7) 5% monocytoid c ells. Gating Strategy SEE NOTE Gating in the specimen was (test code = performed on cell 0816898) populationthat resembles lymphocytes and was based on CD45 (panleukoc yte fluorescent int ensity) vs. side scatter (internalcomple xity). Markers: (test SEE NOTE Region B code = 19318-6) CD Marke r %Positive - --------- CD2 83 CD3 77 CD4 62 CD5 79 CD7 78 CD8 14 CD10 1 CD11c 6 CD13 1 CD19 14 CD19+ CD5+ 0 CD2 0 14 C D23 8 CD33 0 CD34 0 CD38 10 CD45 100 CD56+CD3- 7 CD64 0 CD117 0 HLA_DR 14 Chebanse C D19+ 65 Lambd a CD19+ 35 K/L Ratio 1.9 This test was developed and i ts analytical performancechar acteristics have been deter mined by [facility]. It has not beencleared or approved by FDA. This assay has been validatedpursua nt to the CLIA regulation s and is used for clinicalpur poses. Number of 22 markers: (test code = 28935-8) RAC (test code = Performing RAC) Organization Information: Site ID: EZ Name: [facility], Address: [address] [place] [phone] Director: Nalini Gee MD,PhD,SUJIT [place] MethodnenaHIV 1/2 ANTIGEN/ANTIBODY, FOURTH GENERATION [id number] 09:44:00 Test Item Value Reference Range Interpretation Comments HIV AG/AB NON-REACTIVE NON-REACTIVE HIV-1 antigen a nd 4th gen HIV-1/HIV-2 ant ibodies (test code were notdetecte d. There = 56296-9) is no laborator y evidence of HIVinfection . PLEASE NOTE: This info rmation has been disclo shashank koch from records wh ose confidentiality may beprotected by state law. If your state requires suchprotection, then the state law prohi bits you frommaking any further disclosure of t he informationwith out the specific writte n consent of the personto whom it pertains, or as otherwise permitted by claude villaseñor.A general authori zation for the release of medical orother informa tion is NOT sufficient for this purpose. For a dditional information ple ase refer tohttp://educat ion.Zipzoom/ faq/YHO790 (This link is b eing provided for informational/e ducational purposes only.) The performance of this assay has not been clinicallyvalid ated in patients less t christie 2 years old. RAC (test Performing code = RAC) Organization Information: Site ID: RGA Name: [facility] Address: [address] [place] [phone] Director: Carson [place] [facility] [id number] 05:29:00 Test Item Value Reference Interpretation Comments Range Glucose (test 87 mg/dL 65-99 Fa sting code = 2345-7) reference int erval BUN (test code = 20 mg/dL 05-09 3094-0) Creatinine (test 0.79 mg/dL 0.5-0.99 For patient s >49 code = 2160-0) years of age, the reference limit for Creatinine is approximately 1 3% higher for peopleidentifie d as -Maritza n. EGFR Non-Afr. 79 > OR = 60 [place]egalese (test mL/min/1.73m2 code = 2775) EGFR 92 > OR = 60 [place] (test mL/min/1.73m2 code = 23809-1) BUN/creatinine NOT APPLICABLE (calc) ratio (test code = 3097-3) Sodium (test code 140 mmol/L 135-146 = 2951-2) Potassium (test 3.8 mmol/L 3.5-5.3 code = 2823-3) Chloride (test 106 mmol/L 98-110 code = 2075-0) CO2 (test code = 25 mmol/L 20-32 2027-) Calcium (test 9.9 mg/dL 8.6-10.4 code = 99618-2) Protein (test 6.3 g/dL 6.1-8.1 code = 2885-2) Albumin, S (test 4.3 g/dL 3.6-5.1 code = 1751-7) Globulin, total 2.0 1.9- 3.7 g/dL (test code = (calc) 57491-1) Albumin/globulin 2.2 1.0- 2.5 ratio (test code (calc) = 1759-0) Total bilirubin 0.5 mg/dL 0.2-1.2 (test code = 1974-2) Alkaline 70 U/L 37-153 phosphatase (test code = 6768-6) AST (test code = 16 U/L 10 192-8) ALT (test code = 13 U/L 04-13 174-6) RAC (test code = Performing RAC) Organization Information: Site ID: RGA Name: [facility] Address: [address] [place] [phone] Director: Carson Ward [facility] [id number] 05:29:00 Test Item Value Reference Range Interpretation Comments WBC (test code = 9.5 3.8- 10.8 6690-2) Thousand/uL RBC (test code = 4.70 3.80- 5.10 789-8) Million/uL HGB (test code = 14.3 g/dL 11.7-15.5 718-7) HCT (test code = 42.0 % 35-45 4544-3) MCV (test code = 89.4 fL 80-100 787-2) MCH (test code = 30.4 pg 27-33 785-6) MCHC (test code = 34.0 g/dL 32-36 786-4) RDW (test code = 12.3 % 11-15 788-0) Platelet count 230 140- 400 (test code = 777-3) Thousand/uL MPV (test code = 12.1 fL 7.5-12.5 776-5) RAC (test code = Performing Organization RAC) Information: Site ID: A Name: [facility] Address: [address] [place] [address] Director: Carson Ward [place] MethodistHepatitis B surface [id number] 05:29:00 Test Item Value Reference Range Interpretation Comments Hepatitis B surface NON-REACTIVE NON-REACTIVE Ag (test code = 5196-1) RAC (test code = RAC) Performing Organization Information: Site ID: A Name: [facility] Address: [address] [place] [address] Director: Carson Ward [place] MethodistHepatitis B core antibody [id number] 05:29:00 Test Item Value Reference Range Interpretation Comments Hepatitis B core NON-REACTIVE NON-REACTIVE total Ab (test code = 86159-7) RAC (test code = RAC) Performing Organization Information: Site ID: A Name: [facility] Address: [address] [place] [address] Director: Carson Ward [place] MethodistImmunoglobulin [id number] 01:05:00 Test Item Value Reference Range Interpretation Comments IgG (test code = 2465-3) 468 mg/dL 600-1540 L SANTANA (test code = SANTANA) FASTING:NOFASTING: NO RAC (test code = RAC) Performing Organization Information: Site ID: RGA Name: [facility] Address: [address] [place] [address] Director: Carson Ward Lab Interpretation (test Abnormal code = 25224-2) [place] [facility] [id number] 01:05:00 Test Item Value Reference Range Interpretation Comments IgM (test code = 2472-9) 25 mg/dL 50-300 L SANTANA (test code = SANTANA) FASTING:NOFASTING: NO RAC (test code = RAC) Performing Organization Information: Site ID: A Name: [facility] Address: [address] [place] [phone] Director: Carson Ward Lab Interpretation (test Abnormal code = 04148-3) [place] [facility] [id number] 01:05:00 Test Item Value Reference Range Interpretation Comments IgA (test code = 2458-8) 58 mg/dL 70-320 L SANTANA (test code = SANTANA) FASTING:NOFASTING: NO RAC (test code = RAC) Performing Organization Information: Site ID: RGA Name: [facility] Address: [address] [place] [phone] Director: Carson Ward Lab Interpretation (test Abnormal code = 71996-0) [place] MethodistDiphtheria Antitoxoid [id number] 01:05:00 Test Item Value Reference Interpretation Comments Range Diphtheria 0.25 IU/mL REFERENCE RANGE : 0.10 antitoxoid Ab IU/mL or great er (test code = Interpretive Cr iteria 5116-9) <0.10 IU/mL Nonprotective A ntibody Level > Or = 0.10 IU/mL Protective A ntibody Level Antibody levels > or = 0.10 IU/mL are consideredprote ctive. After a primary series of threeproperly s paced diphtheria toxo id doses in adultsor fou r doses in infants, a prot ective level ofantitox in (defined as gre ater than 0.10 IU of antitoxin/mL) i s reached in more than 95 %. This test was develo ped and its analyticalp erformance characteristics have been determinedby [facility]. It has not been cleared or appr anthony by FDA. This assay has been validated pursu ant to the CLIA regulation sand is used for clinic al purposes. SANTANA (test code FASTING:NOFASTING = SANTANA) : NO RAC (test code Performing = RAC) Organization Information: Site ID: TXC Name: [facility] Address: [address] [place] [phone] Director: Jonh Mejia MD [place] MethodistTetanus [id number] 01:05:00 Test Item Value Reference Interpretation Comments Range Tetanus 1.20 IU/mL REFERENCE RANGE : 0.10 antitoxoid IU/mL or greate r Antibody (test code = levels > or = 0 .10 IU/mL 90531-8) are consideredp rotective. However, tetanu s can still occur ins ome individuals wit h such antibody levels . Theseresults sh ould not be used to dete rmine thenecessity to administer anti toxin when clinicallyindic ated. This test was develo ped and its analyticalp erformance characteristics have been determinedby [facility]. It has not been cleared or appr anthony by FDA. This assay has been validated pursu ant to the CLIA regulation sand is used for clinic al purposes. SANTANA (test code FASTING:NOFASTING = SANTANA) : NO RAC (test code Performing = RAC) Organization Information: Site ID: TXC Name: [facility] Address: [address] [place] [phone] Director: Jonh Mejia MD [place] MethodistLymphocyte subset panel [id number] 01:05:00 Test Item Value Reference Range Interpretation Comments CD3% (test code = 71 % 57-85 8124-0) CD3 absolute count 1572 840- 3,060 cells/uL (test code = 8122-4) CD4% (test code = 54 % 30-61 8123-2) CD4 absolute count 1228 490- 1,740 cells/uL (test code = 83511-9) CD8% (test code = 16 % 12-42 8101-8) CD8 absolute count 368 180- 1,170 cells/uL (test code = 71215-3) CD4/CD8 ratio (test 3.33 0.86-5.00 code = 65899-9) % NK (CD56/16) 15 % 4-25 (test code = 8112-5) AB NK (CD56/16) 331 70- 760 cells/uL (test code = 9728-7) CD19% (test code = 12 % 6-29 8117-4) Abs. CD19+ lymphs 259 110- 660 cells/uL (test code = 8116-6) Lymphocytes, 2206 850- 3,900 cells/uL absolute (test code = 731-0) SANTANA (test code = FASTING:NOFASTING: NO SANTANA) RAC (test code = Performing Organization RAC) Information: Site ID: [id number] Name: [facility] Address: [address] [place] [address] Director: Dr. Carson Bennett MethodistFecal [id number] 17:00:00 Test Item Value Reference Range Interpretation Comments Fecal calprotectin 28.4 mcg/g <15.625 - 50 (test code = mcg/g Normal>50 - 24770-1) 120 mcg/g Borderline>120 mcg/g Abnormal Calprotectin in Crohn's disease and ulcerative coli tis canbe five to several thousan d times above the referencepopula tion (50 mcg/g or le ss). Levels are usua lly 50 mcg/gor less in healthy patient s and with irrita ble bowelsyndrome. Repeat testing in 4-6 weeks is suggested forborderline values. SANTANA (test code = SPLIT 12/12/2019 SANTANA) FROM [id number]:NOF ASTING: NO RAC (test code = Performing RAC) Organization Information: Site ID: [id number] Name: [facility], Address: [address] [place] [address] Director: Nalini Gee MD,PhD,SUJIT Donald MethodistQuantiFERON-TB Gold Plus, 1 [id number] 18:30:00 Test Item Value Reference Interpretation Comments Range Quantiferon TB NEGATIVE NEGATIVE Negative test result. gold plus (test M. tuberculo sis code = 69408-5) complex infe ction unlikely. Quantiferon NIL 0.03 IU/mL (test code = 37727-7) Quantiferon >10.00 IU/mL mitogen minus NIL (test code = 89480-1) Quantiferon plus <0.00 IU/mL TB1 minus NIL (test code = 02330-3) Quantiferon plus 0.00 IU/mL The Nil tu be value TB2 minus NIL reflects the (test code = background 5774) interferongamma immune response of the patient's blood sample.This bandar ue has been subtracted from the patient'sdi splayed TB and Mitogen results. Lower than expected result s with the Mitogen tubeprevent false-negative Quantiferon itzel dings bydetecting a p atient with a potentia l immunesuppressi ve condition and/o r suboptimal pre-analyticals pecimen handling. The T B1 Antigen tube is coated with theM. tuberculosis-sp ecific antigens design ed to elicitresponses from TB antigen prim ed CD4+ helperT-lymphoc ytes. The TB2 Antigen tube is coated with theM. tuberculosis-sp ecific antigens design ed to elicitresponses from TB antigen prim ed CD4+ helper and CD8+cytotoxic T-lymphocytes. For additional information, pl ease refer tohttps://educa tion.Clarivoy/faq /JDN898(This li nk is being provided for informational/e ducatio nal purposes on ly.) SANTANA (test code = FASTING:NOFASTING SANTANA) : NO RAC (test code = Performing RAC) Organization Information: Site ID: [facility] Name: [facility] Address: [address] [place] [address] Director: Carson KatC-reactive [id number] 16:04:00 Test Item Value Reference Range Interpretation Comments CRP (test code = 1988-5) 9.2 mg/L <8.0 H SANTANA (test code = SANTANA) COLLECTION KIT GIVEN TO PATIENT. PATIENT ADVISED TO RETURN. RAC (test code = RAC) Performing Organization Information: Site ID: [facility] Name: [facility] Address: [address] [place] [address] Director: Carson Ward Lab Interpretation (test Abnormal code = 10007-2) [place] [facility]imentation [id number] 16:04:00 Test Item Value Reference Range Interpretation Comments Sedimentation rate 2 mm/h < OR = 30 (test code = 4537-7) SANTANA (test code = SANTANA) COLLECTION KIT GIVEN TO PATIENT. PATIENT ADVISED TO RETURN. RAC (test code = RAC) Performing Organization Information: Site ID: [facility] Name: [facility] Address: [address] [place] [address] Director: Carson Kat
[2020-04-17 15:01] LABS: Absolute Lymphocytes (CBC) 2.2 K/uL (0.7-4.9); Basophils % 0.9 % (0-1.3); Lymphocytes % 24.4 % (15.3-44.8); MPV 10.3 fL (7.6-11.3); RBC Red Blood Cell Count 4.77 M/uL (3.86-4.86)
[2020-04-17 15:22] LABS: ALT/SGPT 20 U/L (12-78); AST/SGOT 16 U/L (15-37); Albumin 3.7 g/dL (3.4-5.0); Alkaline Phosphatase 85 U/L (45-117); BUN Blood Urea Nitrogen 23 mg/dL (7-18); Bicarbonate 25 mmol/L (21-32); Bilirubin Direct < 0.1 mg/dL (0-0.2); Bilirubin Total 0.2 mg/dL (0.2-1.0); Glucose Level 97 mg/dL (74-106); Lipase 149 U/L (73-393); Potassium 3.9 mmol/L (3.5-5.1); Protein, Total 6.8 g/dL (6.4-8.2); Sodium Level 143 mmol/L (136-145)
[2020-04-17 15:31] LABS: Urine Blood TRACE (NEG); Urine Glucose NEGATIVE (NEG); Urine Protein NEGATIVE (NEG); Urine Specific Gravity 1.015 (1.005-1.030)
--- NOTE | 2020-04-17 16:04 | RAD REPORT ---
EXAM DESCRIPTION: CT - Abdomen Pelvis W Contrast - 04/17/2020 3:44 pm CLINICAL HISTORY: ABD PAIN, patient reports bilateral flank pain with a history of Crohn's disease, prior appendectomy and prior cholecystectomy COMPARISON: CT abdomen and pelvis March 2019 TECHNIQUE: Biphasic, helical CT imaging of the abdomen and pelvis was performed following 100 ml non -ionic IV contrast. No oral contrast administered. All CT scans are performed using dose optimization technique as appropriate and may include automated exposure control or mA/KV adjustment according to patient size. FINDINGS: No suspicious findings in the lung bases. The liver, spleen, and pancreas show no suspicious findings. Cholecystectomy clips are present. No bi liary tree dilatation. Symmetric renal function is seen with no hydronephrosis or suspicious renal mass. No pyelonephritis o r acute parenchymal process. No bladder abnormalities. No adrenal abnormalities. Uterus and ovaries s how no suspicious findings. No dilated bowel loops or bowel wall thickening. Appendectomy clips are present. Patient has moderate sigmoid diverticulosis without diverticulitis findings. No free air, free fluid or inflammatory stra nding. No hernia, mass or bulky lymphadenopathy. No acute bone findings seen. Patient has significant disc and endplate degenerative change at L2-3. A dvanced facet joint degenerative changes are present L4-S1 region. IMPRESSION: Contrast enhanced CT abdomen and pelvis showing no significant or suspicious finding. Above detailed findings are not substantially different from comparison.
--- NOTE | 2020-04-17 16:33 | ER ---
Nurse's Notes [facility] Name: Betsy Marcelino Age: 64 yrs Sex: Female : 1955 Arrival Date: 04/17/2020 Time: 14:01 Bed 16 Private MD: Buddy De La Vega V Diagnosis: Generalized abdominal pain;Dysuria Presentation: 04/17 14:06 Chief complaint: Patient states: BILATERAL FLANK PAIN x1 WK. Coronavirus screen: bp Proceed with normal triage. Ebola Screen: No symptoms or risks identified at this time. Initial Sepsis Screen: Does the patient meet any 2 criteria? No. Patient's initial sepsis screen is negative. Does the patient have a suspected source of infection? No. Patient's initial sepsis screen is negative. Risk Assessment: Do you want to hurt yourself or someone else? Patient reports no desire to harm self or others. Onset of symptoms is unknown. 14:06 Method Of Arrival: Ambulatory bp 14:06 Acuity: MIRTA 3 bp Historical: - Allergies: 14:08 Augmentin; bp 14:08 Macrobid; bp - Home Meds: 14:08 Apriso 0.375 gram oral cp24 4 caps once daily [Active]; citalopram 10 mg tab 1 tab once bp daily [Active]; famotidine 40 mg Oral tab 1 tab 2 times per day [Active]; - PMHx: 14:08 Crohn's; MINYEAR'S; Arthritis; bp - Immunization history:: Adult Immunizations up to date. - Social history:: Smoking status: Patient denies any tobacco usage or history of. Screenin:14 Abuse screen: Denies threats or abuse. Nutritional screening: No deficits noted. ll1 Tuberculosis screening: No symptoms or risk factors identified. Fall Risk None identified. IV access (20 points). Total Christianson Fall Scale indicates No Risk (0-24 pts). Assessment: 14:40 General: Appears in no apparent distress. Behavior is calm, cooperative, appropriate ll1 for age. Pain: Complains of pain in bilateral flanks. Neuro: No deficits noted. Cardiovascular: No deficits noted. Respiratory: No deficits noted. GI: Abdomen is flat, Bowel sounds present X 4 quads. Abd is soft and non tender X 4 quads. Reports lower abdominal pain, upper abdominal pain. : No deficits noted. 15:40 Reassessment: Patient appears in no apparent distress at this time. No changes from ll1 previously documented assessment. Patient and/or family updated on plan of care and expected duration. Pain level reassessed. Patient is alert, oriented x 3, equal unlabored respirations, skin warm/dry/pink. 16:40 Reassessment: Patient appears in no apparent distress at this time. No changes from ll1 previously documented assessment. Patient and/or family updated on plan of care and expected duration. Pain level reassessed. Patient is alert, oriented x 3, equal unlabored respirations, skin warm/dry/pink. Vital Signs: 14:06 BP 137 / 81; Pulse 69; Resp 16; Temp 97.6; Pulse Ox 99% ; Weight 79.38 kg; Height 5 ft. bp 6 in. (167.64 cm); 16:42 BP 135 / 74; Pulse 58; Resp 17; Temp 98.5; Pulse Ox 98% ; Pain 2/10; ll1 14:06 Body Mass Index 28.25 (79.38 kg, 167.64 cm) bp ED Course: 14:01 Patient arrived in ED. mr 14:01 Buddy De La Vega MD is Private Physician. mr 14:07 Triage completed. bp 14:08 Arm band placed on. bp 14:14 Ra Avendaño PA is PHCP. jmm 14:14 Antonio Patel MD is Attending Physician. jmm 14:20 Odin Estrella, BRYSON is Primary Nurse. ll1 14:51 Inserted saline lock: 20 gauge in left antecubital area, using aseptic technique. Blood ll1 collected. 15:14 Patient has correct armband on for positive identification. Bed in low position. Call ll1 light in reach. Side rails up X 1. 15:43 CT Abd/Pelvis - IV Contrast Only In Process Unspecified. EDMS 16:42 No provider procedures requiring assistance completed. IV discontinued, intact, ll1 bleeding controlled, No redness/swelling at site. Pressure dressing applied. Administered Medications: No medications were administered Outcome: 16:32 Discharge ordered by . jmm 16:42 Discharged to home ambulatory. ll1 16:42 Condition: stable 16:42 Discharge instructions given to patient, Instructed on discharge instructions, follow up and referral plans. medication usage, Demonstrated understanding of instructions, follow-up care, medications, Prescriptions given X 1. 16:43 Patient left the ED. ll1 Signatures: Dispatcher [employer] EDMS Ra Avendaño PA PA jmm Rivera, Mary mr Peltier, Brian, RN RN Odin Brooks RN RN ll1
--- NOTE | 2020-04-17 16:33 | EDPHYS ---
Physician Documentation [facility] Name: Betsy Marcelino Age: 64 yrs Sex: Female : 1955 Arrival Date: 04/17/2020 Time: 14:01 Bed 16 Private MD: Buddy De La Vega V ED Physician Antonio Patel HPI: 04/17 15:05 This 64 yrs old Female presents to ER via Ambulatory with complaints of jmm Abdominal Pain. 15:05 The patient presents with abdominal pain. Onset: The symptoms/episode began/occurred jmm gradually, 4 day(s) ago. The symptoms do not radiate. Associated signs and symptoms: Pertinent negatives: nausea and vomiting, blood in stools, diarrhea, shortness of breath. The symptoms are described as achy, dull. Modifying factors: The symptoms are alleviated by supine position. This is a 64 year old female a history of Crohns that presents ot the ED with complaints of generalized abdominal pain beginning approx 4 days ago. Denies vomiting or diarrhea. Complains of dysuria. . Historical: - Allergies: 14:08 Augmentin; bp 14:08 Macrobid; bp - Home Meds: 14:08 Apriso 0.375 gram oral cp24 4 caps once daily [Active]; citalopram 10 mg tab 1 tab once bp daily [Active]; famotidine 40 mg Oral tab 1 tab 2 times per day [Active]; - PMHx: 14:08 Crohn's; MINYEAR'S; Arthritis; bp - Immunization history:: Adult Immunizations up to date. - Social history:: Smoking status: Patient denies any tobacco usage or history of. ROS: 15:05 Constitutional: Negative for fever, chills, and weight loss, Cardiovascular: Negative jmm for chest pain, palpitations, and edema, Respiratory: Negative for shortness of breath, cough, wheezing, and pleuritic chest pain. 15:05 Abdomen/GI: Positive for abdominal pain. 15:05 All other systems are negative. Exam: 15:05 Constitutional: This is a well developed, well nourished patient who is awake, alert, jmm and in no acute distress. Head/Face: atraumatic. Eyes: EOMI, no conjunctival erythema appreciated ENT: Moist Mucus Membranes Neck: Trachea midline, Supple Chest/axilla: Normal chest wall appearance and motion. Cardiovascular: Regular rate and rhythm. No edema appreciated Respiratory: Normal respirations, no respiratory distress appreciated Abdomen/GI: Non distended, soft Back: Normal ROM Skin: General appearance color normal MS/ Extremity: Moves all extremities, no obvious deformities appreciated, no edema noted to the lower extremities Neuro: Awake and alert, normal gait Psych: Behavior is normal, Mood is normal, Patient is cooperative and pleasant Vital Signs: 14:06 BP 137 / 81; Pulse 69; Resp 16; Temp 97.6; Pulse Ox 99% ; Weight 79.38 kg; Height 5 ft. bp 6 in. (167.64 cm); 16:42 BP 135 / 74; Pulse 58; Resp 17; Temp 98.5; Pulse Ox 98% ; Pain 2/10; ll1 14:06 Body Mass Index 28.25 (79.38 kg, 167.64 cm) bp MDM: 14:41 Patient medically screened. [facility] 16:31 Data reviewed: vital signs, nurses notes. Counseling: I had a detailed discussion with stephanie the patient and/or guardian regarding: the historical points, exam findings, and any diagnostic results supporting the discharge/admit diagnosis, lab results, radiology results, the need for outpatient follow up, to return to the emergency department if symptoms worsen or persist or if there are any questions or concerns that arise at home. ED course: Patient is alert and non toxic in appearance in the ED. Patient is advised to follow up with pcp and otherwise given strict return precautions. Patient understood and agrees with the plan of care. . 04/17 14:35 Order name: Urine Dipstick--Ancillary (enter results); Complete Time: 15:33 em1 04/17 14:37 Order name: Basic Metabolic Panel; Complete Time: 15:33 [facility] 04/17 14:37 Order name: CBC with Diff; Complete Time: 15:21 [facility] 04/17 14:37 Order name: Hepatic Function; Complete Time: 15:33 [facility] 04/17 14:37 Order name: Lipase; Complete Time: 15:33 [facility] 04/17 14:57 Order name: CT Abd/Pelvis - IV Contrast Only; Complete Time: 16:08 [facility] 04/17 14:37 Order name: IV Saline Lock; Complete Time: 14:44 [facility] 07/03 14:37 Order name: Labs collected and sent; Complete Time: 14:44 stephanie Administered Medications: No medications were administered Disposition: 19:11 Co-signature as Attending Physician, Antonio Patel MD. ma2 Disposition: 04/17/20 16:32 Discharged to Home. Impression: Generalized abdominal pain, Dysuria. - Condition is Stable. - Discharge Instructions: Abdominal Pain, Adult, Dysuria. - Prescriptions for Cephalexin 500 mg Oral Capsule - take 1 capsule by ORAL route every 12 hours for 10 days; 20 capsule. - Medication Reconciliation Form, Thank You Letter, Antibiotic Education, Prescription Opioid Use form. - Follow up: Private Physician; When: 2 - 3 days; Reason: Recheck today's complaints, Continuance of care, Re-evaluation by your physician. Signatures: Dispatcher [employer] EDMS Ra Avendaño PA PA jmm Peltier, Brian, RN RN Antonio Rodriguez MD MD ma2 Odin Estrella RN RN ll1 Corrections: (The following items were deleted from the chart) 16:43 16:32 04/17/2020 16:32 Discharged to Home. Impression: Generalized abdominal pain; ll1 Dysuria. Condition is Stable. Forms are Medication Reconciliation Form, Thank You Letter, Antibiotic Education, Prescription Opioid Use. Follow up: Private Physician; When: 2 - 3 days; Reason: Recheck today's complaints, Continuance of care, Re-evaluation by your physician. stephanie
[2020-04-17 17:09] VITALS: BP 135/74; TEMP 98.5; O2SAT 98
== END 2020-04-17 16:43 | disposition home or self-care (01) ==
LOC: ER 13:57
DX: R30.0 Dysuria (principal); K50.90 Crohn's disease, unspecified, without complications; Z88.1 Allergy status to other antibiotic agents
CPT/HCPCS: 85025; 80048; 36415; 80076; 81003; 83690; 74177; 99284; Q9967

== ENCOUNTER 2023-06-14 08:53 | Day surgery (SDC) | payer OTHER ==
[2023-06-12 08:53] LABS: Absolute Lymphocytes (CBC) 1.8 K/uL (0.7-4.9); Hematocrit 44.5 % (36.0-45.0); Lymphocytes % 28.3 % (15.3-44.8); MCV 90.6 fL (80-100); MPV 9.6 fL (7.6-11.3); Platelets 232 thou/uL (152-406); RBC Red Blood Cell Count 4.91 M/uL (3.86-4.86)
[2023-06-12 08:56] LABS: Protime INR 1.05
[2023-06-12 09:05] LABS: Potassium 4.1 mEq/L (3.5-5.1)
[2023-06-14] MEDS ORDERED: Ringers Lactate 1,000 ML IV ONE (09:30)
[2023-06-14] MEDS ORDERED: BUPIVACAINE 0.25% PF 10 ML VIAL ONE (10:32)
[2023-06-14] MEDS ORDERED: CEFAZOLIN SODIUM 2 GM/VIAL ONE (10:37)
[2023-06-14] MEDS ORDERED: propofoL 200 MG/20 ML VIAL IV ONE (10:43)
[2023-06-14] MEDS ORDERED: FENTANYL CITR 100 MCG/2 ML ONE (10:43)
[2023-06-14] MEDS ORDERED: ONDANSETRON 4 MG/2 ML VIAL ONE (10:44)
[2023-06-14] MEDS ORDERED: MIDAZOLAM HCL 2 MG/2 ML INJ ONE (10:44)
[2023-06-14] MEDS ORDERED: LIDOCAINE 2% MPF 5 ML VIAL ONE (10:44)
--- NOTE | 2023-06-14 11:51 | P.BOP ---
Preoperative diagnosis: right knee lateral meniscus tear, right knee osteoarthritis Postoperative diagnosis: same Primary procedure: right knee arthroscopic partial lateral meniscectomy Manager [employer] Sales: NONE,NONE Estimated blood loss: 3 cc Specimen: none Findings: see dictation Anesthesia: General Complications: None Implants: none Fluids & blood products: per anesthesia record; TT: 28 mins @ 300 mmHg Transferred to: Recovery Room Condition: Good
[2023-06-14] MEDS ORDERED: KETOROLAC 30 MG/ML INJ ONE (11:53)
[2023-06-14] MEDS ORDERED: HYDROCODONE/APAP 7.5/325 MG TAB ONE (13:24)
[2023-06-14 13:43] VITALS: BP 138/75; TEMP 98.7; O2SAT 98
== END 2023-06-14 13:31 | disposition home or self-care (01) ==
LOC: OR 08:53
PROVIDERS: ATTEND Orthopaedic Surgery Sports Medicine
PROC: 0SBC4ZZ Excision of Right Knee Joint, Percutaneous Endoscopic Approach (ICD-10-PCS; principal; 2023-06-14 10:15)
DX: S83.281A Other tear of lateral meniscus, current injury, right knee, initial encounter (principal); M25.561 Pain in right knee; M17.11 Unilateral primary osteoarthritis, right knee; F41.9 Anxiety disorder, unspecified; M06.9 Rheumatoid arthritis, unspecified
CPT/HCPCS: 85025; 80048; 36415; 85610; 85730; 29881; J2704; J2001; J2250; J3010; J2405; J7120

== ENCOUNTER 2023-11-01 06:00 | Observation (INO) | payer OTHER ==
[2023-10-30 09:52] LABS: Hematocrit 46.1 % (36.0-45.0); MCV 90.9 fL (80-100); MPV 10.2 fL (7.6-11.3); Platelets 202 thou/uL (152-406); RBC Red Blood Cell Count 5.08 M/uL (3.86-4.86)
[2023-10-30 10:01] LABS: Protime INR 1.07
[2023-10-30 10:05] LABS: Potassium 4.2 mEq/L (3.5-5.1)
[2023-11-01] MEDS ORDERED: CEFAZOLIN SODIUM 2 GM/VIAL ONE (06:15)
[2023-11-01] MEDS ORDERED: Ringers Lactate 1,000 ML IV ONE ×2 (06:15→09:11)
[2023-11-01] MEDS ORDERED: MIDAZOLAM HCL 2 MG/2 ML INJ ONE (07:19)
[2023-11-01] MEDS ORDERED: LIDOCAINE 1% MPF 5 ML VIAL ONE (07:19)
[2023-11-01] MEDS ORDERED: FENTANYL CITR 100 MCG/2 ML ONE (07:19)
[2023-11-01] MEDS ORDERED: BUPIVACAINE 0.25% PF 30 ML VIAL ONE (07:19)
[2023-11-01] MEDS ORDERED: dexAMETHasone 10 MG/ML VIAL ONE ×2 (07:19→10:01)
[2023-11-01] MEDS ORDERED: EPINEPHRINE 1 MG/ML VIAL ONE (07:19)
[2023-11-01] MEDS ORDERED: GABAPENTIN 100 MG CAP ONE (07:31)
[2023-11-01] MEDS ORDERED: ACETAMINOPHEN 500 MG TAB ONE (07:31)
[2023-11-01] MEDS ORDERED: Oxycodone HCl/Acetaminophen 5/325 MG TAB ONE (07:31)
[2023-11-01] MEDS ORDERED: CELECOXIB 100 MG CAPSULE ONE (07:32)
[2023-11-01] MEDS ORDERED: TRANEXAMIC ACID 1,000 MG/10 ML VIAL IV ONE (07:52)
[2023-11-01] MEDS ORDERED: MAGNESIUM SULFATE 1 gm IVPB 1 GM/100 ML BAG IV ONE (08:09)
[2023-11-01] MEDS ORDERED: DEXMEDETOMIDINE HCL 200 MCG/2 ML VIAL ONE (08:09)
[2023-11-01] MEDS ORDERED: LIDOCAINE 2% MPF 5 ML VIAL ONE ×2 (08:13→08:28)
[2023-11-01] MEDS ORDERED: propofoL 200 MG/20 ML VIAL IV ONE (08:14)
[2023-11-01] MEDS ORDERED: KETAMINE HCL IN 0.9 % NACL 50 MG/5 ML SYRINGE IV ONE (08:28)
[2023-11-01] MEDS ORDERED: ONDANSETRON 4 MG/2 ML VIAL ONE (10:02)
[2023-11-01] MEDS ORDERED: GABAPENTIN 100 MG CAP PO PRN (10:18)
--- NOTE | 2023-11-01 10:18 | P.BOP ---
Preoperative diagnosis: right knee osteoarthritis Postoperative diagnosis: same Primary procedure: right total knee arthroplasty [employer] Commun[employer] Designer: NONE,NONE Estimated blood loss: 40 cc Specimen: right knee bone remnants Findings: see dictation Anesthesia: General Complications: None Implants: Biomet Luz Persona 9 CR femur, E tibia, 10 CR poly, 29 patella Fluids & blood products: per anesthesia record Transferred to: Recovery Room Condition: Good
[2023-11-01] MEDS ORDERED: DOCUSATE NA 100 MG CAP PO PRN (10:19)
[2023-11-01] MEDS ORDERED: ACETAMINOPHEN 325 MG TABLET PO PRN (10:19)
[2023-11-01] MEDS ORDERED: ONDANSETRON 4 MG/2 ML VIAL IV PRN (10:19)
[2023-11-01] MEDS ORDERED: TRAMADOL HCL 50 MG TAB PO PRN (10:21)
[2023-11-01] MEDS: HYDROMORPHONE HCL 1 MG/ML INJ ONE ×2 (11:06→11:36)
--- NOTE | 2023-11-01 11:39 | P.OP ---
Preoperative diagnosis: right knee osteoarthritis Postoperative diagnosis: same Primary procedure: right total knee arthroplasty Anesthesia: general Estimated blood loss: 40 cc Specimen: right knee bone remnants Findings: see dictation Operative Technique: Indication For Procedure: Betsy is a 68 year-old female presenting to my clinic with signs, symptoms and x-ray findings consistent with right knee osteoarthritis. I discussed with the patient at length risks and benefits associated with operative and nonoperative treatment. She had failed conservative treatment measures including corticosteroid injections, viscosupplementation injections and had significant difficulties with ADLs secondary to her pain. We discussed operative treatment and elected to proceed with right total knee arthroplasty. She expressed understanding and elected to proceed with operative treatment. Description Of Procedure: After informed consent was obtained, the patient was identified in the preoperative holding area. The right lower extremity was marked. The patient was then taken to the PACU where she underwent a right lower extremity adductor canal block performed by Anesthesia. She was then taken to the operating room, transferred to the operating table in supine fashion, and placed under general anesthesia. Her right lower extremity was then prepped and draped in usual sterile fashion. A time-out was initiated. The correct patient and procedure were confirmed and identified. The patient did receive her preoperative prophylactic antibiotics. The right lower extremity was then exsanguinated and tourniquet was inflated to 300 mmHg. Approximately 15 cm longitudinal incision was made centered over the anterior aspect of the right knee. Dissection was then taken to the extensor mechanism and a medial parapatellar arthrotomy was performed. The patella was everted and dislocated laterally with some difficulty and the knee was flexed and the fat pad was excised. Medial meniscus, lateral meniscus and ACL were all excised exposing the distal femur. Excess hypertrophic synovium was also excised within the suprapatellar pouch. The patient had an MRI of her right knee preoperatively for surgical planning and creation of cutting blocks. The cutting block was then placed over the distal femur and pins were then placed. The distal femoral cutting block was then placed over the pins. Knee joint was then used to ensure proper depth cut and the distal femur was then cut. The chamfer cutting guide was then placed over the distal end of the femur. Anterior, posterior cuts as well as anterior and posterior chamfer cuts were then made again confirming proper depth of the cut using an Pardeep wing. Excess bone remnants were then sent to pathology for further evaluation. Next, attention was taken to the proximal tibia. A tibial jig and tibial cutting block was then placed on proximal aspect of the tibia and locked into position. Pins were then placed and alignment guide was then used to confirm proper alignment of the cut and then coronal and sagittal planes. Once this was confirmed, the cutting jig was placed over the pins and the proximal tibia was cut. Sizing trays were then selected and size 10 mm spacer was used. After this was completed there was good overall balance in flexion and extension with the 10 mm spacer. Next, the trial implants were then placed using the size 9 standard CR femur and a size E tibia with an 10 mm poly. There was overall good range of motion and good stability trial implants were then removed. The wound was then irrigated thoroughly with normal saline and the knee was then injected with 20 cc of 0.5% Marcaine both in the posterior capsule and medial and lateral gutters as well as quadriceps tendon and periosteum. The tibia was then punched and marked after the patella button was placed. The femur was drilled. The cement was then prepared on the back table. Cement was then placed first on the tibial surface followed by size E tibia. Excess cement was removed with [place] elevators. Size 9 standard CR femur was then placed on the distal femur after cement was placed on the distal femur. Excess cement was then removed and a size 10 mm trial poly was then placed. The knee was held in extension as the cement hardened. Undersurface of the patella was prepared debriding osteophytes using rongeurs as well as osteophytes had been debrided off the proximal tibia with rongeurs. Cement was placed on the undersurface of the patella after it was cut and a size 29 patella was placed. Once the cement was hardened, the knee was ranged, there was good overall stability both in flexion, extension and as well as stability with varus and valgus stresses. Trial poly was then vernon ministerio and a size 10 mm CR poly was then placed and locked into position. The knee was then ranged again. There was good overall range of motion both for flexion and extension with good stability. The wound was then irrigated again thoroughly with normal saline using pulse lavage. Tourniquet was let down. Hemostasis was achieved using Bovie electrocautery. Extensor mechanism was then approximated using a #1 Vicryl both in interrupted and running fashion. The fascia was then approximated using 0 Vicryl. Subcutaneous tissue was approximated with a 2-0 Vicryl. Skin was approximated using sushila. Sterile dressings were applied. The patient was awakened and transferred back in stable condition Complications: None Implants: Biomet Luz Persona 9 CR femur, E tibia, 10 CR poly, 29 patella Fluids & blood products: per anesthesia record Transferred to: Recovery Room Condition: Good
[2023-11-01 12:29] VITALS: BMI 32.4
--- NOTE | 2023-11-01 13:17 | RAD REPORT ---
EXAM DESCRIPTION: RAD - Knee Right 2 View - 11/01/2023 10:54 am CLINICAL HISTORY: Post Op COMPARISON: No comparisons TECHNIQUE: Right knee, 2 views. FINDINGS: A right total knee arthroplasty has been performed. Hardware is in expected location. Soft tissue gas and skin sushila are noted. IMPRESSION: Postoperative right knee with no unexpected finding.
[2023-11-01] MEDS: CEFAZOLIN SODIUM 2 GM in NA CHLORIDE 0.9% 100 ML IVPB SCH (17:37)
[2023-11-01] MEDS: HYDROXYCHLOROQUINE 200MG TAB PO SCH (20:28)
[2023-11-01] MEDS: TRUSOPT 2% OPTH SCH (21:00)
[2023-11-01] MEDS: LOTEPREDNOL ETABONATE OPTH SCH (21:00)
[2023-11-01] MEDS: TIMOLOL MALEATE OPTH SCH (21:00)
[2023-11-01] MEDS: DROPERETTE OPTH SCH (21:00)
[2023-11-01] MEDS: OPTH OPTH SCH (21:00)
[2023-11-01] MEDS: HYDROCODONE/APAP 7.5/325 MG TAB PO PRN (21:48)
[2023-11-02] MEDS: CEFAZOLIN SODIUM 2 GM in NA CHLORIDE 0.9% 100 ML IVPB SCH ×2 (00:25→08:23)
[2023-11-02] MEDS ORDERED: MELATONIN 5 MG TABLET PO ONE (02:40)
[2023-11-02] MEDS: HYDROCODONE/APAP 7.5/325 MG TAB PO PRN ×2 (05:57→12:38)
[2023-11-02] MEDS ORDERED: ENOXAPARIN 30 MG/0.3 ML SQ SCH (06:00)
[2023-11-02 06:40] LABS: Hematocrit 39.2 % (36.0-45.0)
[2023-11-02] MEDS: HYDROXYCHLOROQUINE 200MG TAB PO SCH (08:24)
[2023-11-02] MEDS: LOTEPREDNOL ETABONATE OPTH SCH (08:26)
[2023-11-02] MEDS: TIMOLOL MALEATE OPTH SCH (08:26)
[2023-11-02] MEDS: DROPERETTE OPTH SCH (08:26)
[2023-11-02] MEDS: TRUSOPT 2% OPTH SCH (08:26)
[2023-11-02] MEDS: OPTH OPTH SCH (08:26)
[2023-11-02] MEDS ORDERED: DULOXETINE 30 MG CAP PO SCH (09:00)
[2023-11-02] MEDS ORDERED: PANTOPRAZOLE 40MG TABLET PO SCH (09:00)
[2023-11-02] MEDS ORDERED: CELECOXIB 100 MG CAPSULE PO SCH (09:00)
[2023-11-02 11:04] VITALS: O2SAT 97
[2023-11-02 12:14] VITALS: BP 119/70; TEMP 97.8
--- NOTE | 2023-11-02 12:27 | P.DS ---
Admission Date: 11/01/23 Discharge Date: 11/02/23 Disposition: DC HOME/HOME HEALTH CARE Discharge Condition: GOOD Reason for Admission: Right total knee arthroplasty Consultations: None Procedures: Right total knee arthroplasty Brief History of Present Illness: Betsy was admitted postoperatively after undergoing right total knee arthroplasty on November 01, 2023. She was admitted to floor in stable condition. Hospital Course: Patient was admitted to the floor postoperatively in stable condition. Physical therapy was consulted to aid with mobilization. Patient was able to mobilize safely with physical therapy prior to discharge. She will follow-up in 2 weeks for wound check and staple removal. She was given Lovenox while in the hospital for DVT prophylaxis and was discharged with Xarelto. Vital Signs/Physical Exam: Temp Pulse Resp BP Pulse Ox 97.8 F 75 18 119/70 99 11/02/23 12:00 11/02/23 12:00 11/02/23 12:00 11/02/23 12:00 11/02/23 12:00 Laboratory Data at Discharge: WBC 7.80 thou/uL (4.3-10.9) 10/30/23 09:40 Hgb 12.9 g/dL (12.0-15.0) 11/02/23 06:20 Hct 39.2 % (36.0-45.0) 11/02/23 06:20 Plt Count 202 thou/uL (152-406) 10/30/23 09:40 PT 11.8 SECONDS (9.5-12.5) 10/30/23 09:40 INR 1.07 10/30/23 09:40 APTT 34.5 SECONDS (24.3-36.9) 10/30/23 09:40 Sodium 140 mEq/L (136-145) 10/30/23 09:40 Potassium 4.2 mEq/L (3.5-5.1) 10/30/23 09:40 BUN 22 mg/dL (7-18) H 10/30/23 09:40 Creatinine 0.89 mg/dL (0.55-1.02) 10/30/23 09:40 Glucose 104 mg/dL (74-106) 10/30/23 09:40 Home Medications: Cranberry 500 mg PO DAILY 06/12/23 Dorzolamide [Trusopt 2%*] 1 drop EACH EYE BID 06/12/23 Duloxetine HCl [Cymbalta] 30 mg PO DAILY 06/12/23 Hydroxychloroquine Sulfate [Plaquenil] 200 mg PO BID 06/12/23 Lactobacillus Combo No.11 [Probiotic] 1 each PO DAILY 06/12/23 Timolol Maleate/Pf [Timolol Maleate 0.25% Eye Drop] 1 each OP BID 06/12/23 Gabapentin 100 mg PO BEDTIME PRN PRN 10/30/23 Loteprednol Etabonate [Lotemax] 1 gtt OP BID 10/30/23 Multivitamin 1 each PO DAILY 10/30/23 Pantoprazole Sodium [Protonix] 40 mg PO DAILY 10/30/23 Remicade 1 IV SEECOM 10/30/23 Hydrocodone 7.5/APAP 325 [[place] 7.5/325 mg*] 1 tab PO Q4H PRN tab 11/02/23 Physician Discharge Instructions: Keep dressing clean, dry and intact. Use bilateral REJI hose for 2 weeks to aid with swelling. Begin Xarelto tomorrow, 11/03/2023 and take once daily with breakfast for DVT prophylaxis. Followup with Dr. Driver in 2 weeks for staple removal. Diet: Regular Activity: Weight bearing as tolerated Followup: Buddy De La Vega MD [Primary Care Provider] - Emanuel Driver MD [ACTIVE - CAN ADMIT] -
== END 2023-11-02 15:23 | disposition home health service (06) ==
LOC: OR 06:00 → 4TH 10:54
PROVIDERS: ADMIT Orthopaedic Surgery Sports Medicine; ATTEND Orthopaedic Surgery Sports Medicine
PROC: 0SRC069 Replacement of Right Knee Joint with Oxidized Zirconium on Polyethylene Synthetic Substitute, Cemented, Open Approach (ICD-10-PCS; principal; 2023-11-01 08:00)
DX: M17.11 Unilateral primary osteoarthritis, right knee (principal)
CPT/HCPCS: 36415; 80048; 85014; 85018; 85025; 85610; 85730; 88304; 88311; 94010; 97110; 97116; 97139; 97163; C1776; G0378; G0379; J0171; J1100; J1170; J1650; J2001; J2250; J2405; J2704; J3010; J3475; J7120

== ENCOUNTER 2024-04-02 21:58 | Emergency (ER) | payer OTHER ==
--- NOTE | 2024-04-02 23:37 | ER ---
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 negative LOC. Coronavirus screen: Vaccine status: Patient reports receiving the 1st dose of the Covid vaccine. Ebola Screen: Patient denies travel to an Ebola-affected area in the 21 days before illness onset. Mechanism of Injury: The problem was sustained at a parking lot, resulted from a fall, from a standing position. Initial Sepsis Screen: Does the patient meet any 2 criteria? No. Patient's initial sepsis screen is negative. Does the patient have a suspected source of infection? No. Patient's initial sepsis screen is negative. Risk Assessment: Do you want to hurt yourself or someone else? Patient reports no desire to harm self or others. 22:32 Method Of Arrival: Ambulatory [facility] 22:32 Acuity: MIRTA 3 8 04/03 00:16 Onset of symptoms was April 03, 2024. as6 Triage Assessment: 04/02 22:37 General: Appears in no apparent distress. Behavior is calm, cooperative, appropriate bm8 for age. Pain: Complains of pain in head \T\ jaws Pain currently is 5 out of 10 on a pain scale. Neuro: Oriented to person, place, time, situation, Reports dizziness. Historical: - Allergies: 22:37 Augmentin; bm8 22:37 Macrobid; bm8 22:37 Tizanidine; bm8 - Home Meds: 22:37 pantoprazole 40 mg oral tablet, delayed release (enteric coated) 1 tab once [Active]; bm8 Cymbalta 30 mg oral capsule,delayed release (e.c.) 1 cap once [Active]; trazodone 50 mg Oral tablet 1 tab once [Active]; naltrexone 50 mg oral tablet once [Active]; - PMHx: 22:37 Arthritis; Crohn's; bm8 - PSHx: 22:37 Appendectomy; Cholecystectomy; joint replacement right knee; bm8 - Immunization history:: Client reports receiving the 1st dose of the Covid vaccine. - Infectious Disease History:: Denies. - Social history:: Smoking status: Patient/guardian denies using tobacco. Screenin/19 00:14 [facility] ED Fall Risk Assessment (Adult) History of falling in the last 3 months, as6 including since admission No falls in past 3 months (0 pts) Confusion or Disorientation No (0 pts) Intoxicated or Sedated No (0 pts) Impaired Gait No (0 pts) Mobility Assist Device Used Altered Elimination No (0 pt) Score/Fall Risk Level 0 - 2 = Low Risk Oriented to surroundings, Maintained a safe environment, Educated pt \T\ family on fall prevention, incl call for assistance when getting out of bed, Assessed \T\ reinforced patient's understanding of fall precautions. Abuse screen: Denies threats or abuse. Denies injuries from another. Nutritional screening: No deficits noted. Tuberculosis screening: No symptoms or risk factors identified. Vital Signs: 04/02 22:32 BP 150 / 80; Pulse 62; Resp 18; Temp 97.9; Pulse Ox 99% on R/A; Weight 82.55 kg; Height bm8 5 ft. 6 in. ; Pain 6/10; 04/03 00:13 BP 145 / 77; Pulse 65; Resp 18; Pulse Ox 100% ; as6 04/02 22:32 Body Mass Index 29.38 (82.55 kg, 167.64 cm) bm8 04/02 22:32 Pain Scale: Adult bm8 Cookie Coma Score: 04/02 22:31 Eye Response: spontaneous(4). Motor Response: obeys commands(6). Verbal Response: kb oriented(5). Total: 15. 22:32 Eye Response: spontaneous(4). Motor Response: obeys commands(6). Verbal Response: bm8 oriented(5). Total: 15. ED Course: 22:00 Patient arrived in ED. mr 22:04 Katlin Bonds FNP-C is PHCP. kb 22:04 Timoteo Green MD is Attending Physician. kb 22:37 Triage completed. bm8 22:37 Arm band placed on left wrist. bm8 23:06 CT Head C Spine In Process Unspecified. EDMS 23:06 CT Facial Bones W/O Con In Process Unspecified. EDMS 04/03 00:15 Patient has correct armband on for positive identification. Provided Education on: as6 follow up. 00:15 No provider procedures requiring assistance completed. Patient did not have IV access as6 during this emergency room visit. Administered Medications: No medications were administered Medication: 00:15 VIS not applicable for this client. as6 Outcome: 04/02 23:36 Discharge ordered by . chelle 04/03 00:15 Discharged to home ambulatory, with significant other, as6 Condition: stable Discharge instructions given to patient, Instructed on discharge instructions, follow up and referral plans. medication usage, Demonstrated understanding of instructions, follow-up care, medications, Prescriptions given X 1, 00:16 Patient left the ED. as6 Signatures: Dispatcher [employer] EDOH Katlin Bonds, PAIRER-C PAIRER-Jeannette Sauceda, Reg Reg Baron Padilla, RN RN as6 Isaias Sparks, RN RN bm8
--- NOTE | 2024-04-02 23:37 | EDPHYS ---
Physician Documentation [facility] Name: Betsy Marcelino Age: 68 yrs Sex: Female : 1955 Arrival Date: 04/02/2024 Time: 21:58 Bed IW1 Private MD: ED Physician Timoteo Green HPI: 04/02 22:31 This 68 yrs old Female presents to ER via Unassigned with complaints of Head kb Injury-Adult. 22:31 Pt is a 68 year old female who presents for head injury that occurred a little after kb 2099. States she got tangled up in her dog's leash and fell backwards, hitting back of head on the ground. Denies loc or any other injuries. States she does have pain to her jaw when she closes her teeth. . Historical: - Allergies: 22:37 Augmentin; bm8 22:37 Macrobid; bm8 22:37 Tizanidine; bm8 - Home Meds: 22:37 pantoprazole 40 mg oral tablet, delayed release (enteric coated) 1 tab once [Active]; bm8 Cymbalta 30 mg oral capsule,delayed release (e.c.) 1 cap once [Active]; trazodone 50 mg Oral tablet 1 tab once [Active]; naltrexone 50 mg oral tablet once [Active]; - PMHx: 22:37 Arthritis; Crohn's; bm8 - PSHx: 22:37 Appendectomy; Cholecystectomy; joint replacement right knee; bm8 - Immunization history:: Client reports receiving the 1st dose of the Covid vaccine. - Infectious Disease History:: Denies. - Social history:: Smoking status: Patient/guardian denies using tobacco. ROS: 22:31 Constitutional: As per HPI kb Exam: 22:31 Constitutional: This is a well developed, well nourished patient who is awake, alert, kb and in no acute distress. Eyes: Pupils equal round and reactive to light, extra-ocular motions intact. Lids and lashes normal. Conjunctiva and sclera are non-icteric and not injected. Cornea within normal limits. Periorbital areas with no swelling, redness, or edema. ENT: Moist Mucous membranes Cardiovascular: Regular rate Respiratory: Respirations even and unlabored. No increased work of breathing. Talking in full sentences Skin: Warm, dry with normal turgor. Normal color. MS/ Extremity: Pulses equal, no cyanosis. Neurovascular intact. Full, normal range of motion. Neuro: Awake and alert, GCS 15, oriented to person, place, time, and situation. Moves all extremities. Normal gait. 22:31 Head/face: Noted is no obvious of injury or deformity except hematoma, that is moderate, of the left side of the back of head, Vital Signs: 22:32 BP 150 / 80; Pulse 62; Resp 18; Temp 97.9; Pulse Ox 99% on R/A; Weight 82.55 kg; Height bm8 5 ft. 6 in. ; Pain 03/25; 04/03 00:13 BP 145 / 77; Pulse 65; Resp 18; Pulse Ox 100% ; as6 04/02 22:32 Body Mass Index 29.38 (82.55 kg, 167.64 cm) bm8 04/02 22:32 Pain Scale: Adult bm8 Cookie Coma Score: 04/02 22:31 Eye Response: spontaneous(4). Motor Response: obeys commands(6). Verbal Response: kb oriented(5). Total: 15. 22:32 Eye Response: spontaneous(4). Motor Response: obeys commands(6). Verbal Response: bm8 oriented(5). Total: 15. MDM: 22:05 Patient medically screened. kb 22:31 Differential diagnosis: Contusion of Hematoma on Intracranial bleed- Concussion. Data kb reviewed: vital signs, nurses notes. 23:35 Counseling: I had a detailed discussion with the patient and/or guardian regarding the kb historical points, exam findings, and any diagnostic results supporting the discharge/admit diagnosis, radiology results, the need for outpatient follow up, a family practitioner, to return to the emergency department if symptoms worsen or persist or if there are any questions or concerns that arise at home. 04/02 22:17 Order name: CT Head C Spine kb 04/02 22:17 Order name: CT Facial Bones W/O Con kb Administered Medications: No medications were administered Disposition: 04/03 03:58 Co-signature as Attending Physician, Timoteo Green MD I agree with the assessment sp4 and plan of care. I reviewed the patient's care provided by the Advanced Practice Provider and agree with the diagnosis and treatment plan. Disposition Summary: 04/02/24 23:36 Discharge Ordered Notes: Location: Home kb Condition: Stable kb Diagnosis - Unspecified injury of head, initial encounter kb Followup: kb - With: Emergency Department - When: As needed - Reason: Worsening of condition Followup: kb - With: Private Physician - When: 2 - 3 days - Reason: Recheck today's complaints, Continuance of care, Re-evaluation by your physician Discharge Instructions: - Discharge Summary Sheet kb - Concussion, Adult, [id number] kb - Head Injury, Adult, [id number] kb Forms: - Medication Reconciliation Form kb - Antibiotic Education kb - Prescription Opioid Use kb - Patient Portal Instructions kb - Leadership Thank You Letter kb Prescriptions: - orphenadrine citrate 100 mg Oral Tablet Sustained Release - take 1 tablet ORAL route 2 times per day As needed; 20 tablet; Refills: 0, kb Product Selection Permitted Signatures: Dispatcher [employer] EDMS Katlin Bonds, LIA-C GUNNERY/ORDNANCE OFFICER-Timoteo Clemons MD MD sp4 Isaias Sparks RN RN bm8
[2024-04-03 00:36] VITALS: BP 145/77; TEMP 97.9; O2SAT 100
--- NOTE | 2024-04-04 09:47 | RAD REPORT ---
EXAM DESCRIPTION: CT Head, Maxillofacial and Cervical Spine Without Intravenous Contrast CLINICAL HISTORY: The patient is 68 years old and is Female; FACIAL PAIN TECHNIQUE: Axial computed tomography images of the head/brain, face and cervical spine without intra venous contrast. Sagittal and coronal reformatted images were created and reviewed. This CT exam was performed using one or more of the following dose reduction techniques: automated exposure cont rol, adjustment of the mA and/or kV according to patient size, and/or use of iterative reconstruction technique. DLP: 1723 mGy*cm COMPARISON: None. FINDINGS: BRAIN: Cerebral volume loss and chronic small vessel ischemic changes. No hemorrhage. No mass effect or midline shift. VENTRICLES: Unremarkable. No ventriculomegaly. SKULL: No acute fracture. SINUSES: Unremarkable as visualized. No acute sinusitis. MASTOID AIR CELLS: Unremarkable as visualized. No mastoid effusion. VERTEBRAE: Reversal of the cervical lordosis. DISCS/SPINAL CANAL/NEURAL FORAMINA: Multilevel disc height loss and vacuum phenomenon. Multilevel disc herniations, facet arthropathy and uncovertebral hypertrophy. No spinal canal stenosis. SOFT TISSUES: Unremarkable. IMPRESSION: 1. Reversal of the cervical lordosis. Findings may be positional or due to muscle sp asm. 2. No acute intracranial hemorrhage, hydrocephalus or herniation. 3. No acute cervical spine fracture or subluxation. 4. No acute facial fracture. 5. Cerebral volume loss and chronic small vessel ischemic changes. Consider MRI brain for further evaluation. 6. Multilevel degenerative changes. Electronically signed by: Dmitri Johnson DO 04/02/2024 11:31 PM CDT RP 9 Due to temporary technical issues with the PACS/Fluency reporting system, reports are being signed by the in house radiologist without review as a courtesy to ensure prompt reporting. The interpreting r adiologist is fully responsible for the content of the report.
== END 2024-04-03 00:16 | disposition home or self-care (01) ==
LOC: ER 21:58
DX: S00.83XA Contusion of other part of head, initial encounter (principal)
CPT/HCPCS: 70450; 70486; 72125; 76377; 99283